=== PATIENT | male | born 1940 | race Caucasian/White ===

== ENCOUNTER 2024-09-03 12:03 | Emergency (ER) | payer OTHER ==
--- OUTSIDE RECORDS SUMMARY | 2024-09-03 12:09 | XMS REPORT | Continuity of Care Document ---
Author Name Unknown Address [address] [facility] [address] [place] [address] [facility] thconnect Address [address] [facility] [address] [place] [address] Care Team Providers Care Health Advocate Name Role Phone CECILIA GÓMEZ Primary Care Physician Unavailable JEN MCARTHUR Attending Clinician Unavailab PAULETTE Oshea Attending Clinician Unavailable Stephane Dahl DO Attending Clinician [phone] Paulette Rosado Attending Clinician [phone] Radiology Attending Clinician Unavailable RADIOLOGY Attending Clinician Unavailable Doctor Unassigned, Finley Attending Clinician U CHRIS Gee Attending Clinician Unavaila ble Ige-Odhelen_Lakisha_AH Attending Clinician Unavailable PAULETTE MERRITT Admitting Clinician Unavailable CECILIA GÓMEZ Admitting Clinician Un available Ige-Mee_Lakisha_AH Admitting Clinician Unavailable Payers Payer Name Policy Type Policy Number Effective Date Expirati on Date Source [employer] P [id number] MEDICARE PART A \T\ B [id number] 2007 00:00:00 2024 00:00:00 [facility] MEDICARE SUPPLEMENT [id number] 2008 00:00:00 2024 00:00:00 [employer] [place] CLASS[place] PREMIUM HMO [id number] 2019 00:00:00 2024 00:00:00 [employer] MEDICARE OUT OF NETWORK [id number] 2023 00:00:00 2024 00:00:00 [facility] [id number] 2014 00:00:00 2024 00:00:00 [employer] (MEDICARE REPLACEMENT/ADVAN TAGE - HMO) [id number] 00:00:00 Problems Condition Name Condition Details Condition Category Status Onset Date Resolution Date Last Treatment Date Treating Clinician Comments Source No known active problems No known active problems Disease Univers [facility] Allergies, Adverse Reactions, Alerts Allergy Name Allergy Type Status Severity Reaction(s) Onset Date Inactive Date Treating Clinician Comments Source NO KNOWN ALLERGIE S Drug Class Active Univers [facility] Social History Social Habit Start Date Stop Date Quantity Comments Source History of tobacco use Smokes tobacco daily [facility] Sexual [facility] Tobacco use and exposure 2017-08-09 00:00:00 2017-08-09 00:00:00 User of smokeless tobacco [facility] History of Social function 2017-08-09 00:00:00 2017-08-09 00:00:00 [facility] Sex Assigned At 1940 00:00:00 1940 00:00:00 [facility] Smoking Status Start Date Stop Date Source Smokes tobacco daily 2017-08-09 00:00:00 [facility] Medications Ordered Medication Name Filled Medication Name Start Date Stop Date Current Medication? Ordering Clinician Indication Dosage Frequency Signature (SIG) Comments Components Source tamsulosin 0.4 mg capsule 2023-08 00:00: 00 Yes 1mg Sagar Benavides tamsulosin 0.4 mg capsule 2023-08 00:00: 00 Yes 1mg Sagar Benavides diclofenac sodium 75 mg tablet,acosta yed release 2023-08 00:00: 00 Yes 2mg Sagar Benavides citalopram 20 mg tablet 2023-08 00:00: 00 Yes 1mg Sagar Benavides pravastatin 40 mg tablet 2023-08 00:00: 00 Yes 1mg Sagar Benavides ProAir RespiClick 90 mcg/actuati on breath activated 2023-08 00:00: 00 Yes 1mcg/ac tuation Sagar Benavides Advair Diskus 250 mcg-50 mcg/dose powder for inhalation 2023-08 0-10 00:00: 00 Yes 1mcg/do se Sagar Benavides albuterol sulfate 0.63 mg/3 mL solution for nebulizatio n 0 8-13 00:00: 00 Yes mg/3 mL Sagar Benavides Advair Diskus 250 mcg-50 mcg/dose powder for inhalation 0 8-13 00:00: 00 Yes 1mcg/do se Sagar Benavides ProAir RespiClick 90 mcg/actuati on breath activated 0 7- 00:00: 00 Yes 1mcg/ac tuation Sagar Benavides citalopram 20 mg tablet 7- 00:00: 00 Yes 1mg Sagar Benavides pravastatin 40 mg tablet 7- 00:00: 00 Yes 1mg Sagar Benavides diphenoxyla te-atropine 2.5 mg-0.025 mg tablet - 00:00: 00 Yes 1mg Sagar Benavides amoxicillin 875 mg-potassiu m clavulanate 125 mg tablet 6- 00:00: 00 Yes 1mg Sagar Benavides ondansetron 4 mg disintegrat ing tablet - 00:00: 00 Yes 1mg Sagar Benavides albuterol sulfate 0.63 mg/3 mL solution for nebulizatio n 6-19 00:00: 00 Yes mg/3 mL Sagar Benavides ProAir RespiClick 90 mcg/actuati on breath activated 0 6-17 00:00: 00 Yes 1mcg/ac tuation Sagar Benavides citalopram 20 mg tablet 0 6-17 00:00: 00 Yes 1mg Sagar Benavides ProAir RespiClick 90 mcg/actuati on breath activated 0 5-16 00:00: 00 Yes 1mcg/ac tuation Sagar Benavides Advair Diskus 250 mcg-50 mcg/dose powder for inhalation 0 5-14 00:00: 00 Yes 1mcg/do se Sagar Benavides WIXELA INHUB 250/50 INH 2024-0 4-17 00:00: 00 Yes Sagar Benavides Advair Diskus 250 mcg-50 mcg/dose powder for inhalation 14 00:00: 00 Yes 1mcg/do se Sagar Benavides citalopram 20 mg tablet 14 00:00: 00 Yes 1mg Sagar Benavides pravastatin 40 mg tablet 14 00:00: 00 Yes 1mg Sagar Benavides WIXELA INHUB 250/50 INH 11-02 00:00: 00 Yes Sagar Benavides Restasis MultiDose 0.05 % eye drops 10-31 00:00: 00 Yes 1% Sagar Benavides ProAir RespiClick 90 mcg/actuati on breath activated 10-31 00:00: 00 Yes 1mcg/ac tuation Sagar Benavides albuterol sulfate 0.63 mg/3 mL solution for nebulizatio n 10-31 00:00: 00 Yes 1mg/3 mL Sagar Benavides Advair Diskus 250 mcg-50 mcg/dose powder for inhalation 10-31 00:00: 00 Yes 1mcg/do se Sagar Benavides betamethaso ne dipropionat e 0.05 % topical ointment 10-31 00:00: 00 Yes 1% Sagar Benavides mometasone 0.1 % topical cream 10-31 00:00: 00 Yes 1% Sagar Benavides Vectical 3 mcg/gram topical ointment 10-31 00:00: 00 Yes 1mcg/gr am Sagar Benavides diclofenac sodium 75 mg tablet,acosta yed release 10-31 00:00: 00 Yes 2mg Sagar Benavides pravastatin 40 mg tablet 2 00:00: 00 Yes mg Sagar Benavides citalopram 20 mg tablet 10-14 00:00: 00 Yes 1mg Sagar Benavides diclofenac 75 mg EC tablet 10-10 09:43: 38 10-10 00:00 :00 No 75mg Take 75 mg by mouth 3 (three) times daily with meals. [facility] diclofenac 50 mg EC tablet 10-10 00:00: 00 Yes [id number] 50mg Take 1 tablet by mouth 3 (three) times daily with meals as needed for Pain. [facility] methylPREDN ISolone 4 mg tablets 10-10 00:00: 00 Yes [id number] Take by mouth SEE-INSTRU CTIONS. follow package directions [facility] baclofen 10 mg tablet 10-10 00:00: 00 Yes [id number] 10mg Take 1 tablet by mouth at bedtime. [facility] DICLOFENAC 50MG DR 10-10 00:00: 00 Yes Sagar Benavides METHYLPRED 4MG DPAK 10-10 00:00: 00 Yes Sagar Benavides BACLOFEN 10MG 10-10 00:00: 00 Yes Sagar Benavides RESTASIS 0.05% OP EMU 2022-08 0 00:00: 00 Yes Sagar Benavides DESONIDE 0.05% CRE 2022-08 0-06 00:00: 00 Yes Sagar Benavides INHALE 1 PUFF TWICE DAILY. 05-17 00:00: 00 Yes [id number] Sagar Benavides TAKE 1 TABLET DAILY. 05-04 00:00: 00 01-03 00:00 :00 No 40 Sagar Benavides TAKE 1 TABLET DAILY. 05-02 00:00: 00 Yes 20 Sagar Benavides TAKE 1 TABLET DAILY. 05-02 00:00: 00 Yes 40 Sagar Benavides ADVAIR DISKU 100/50 INH 04-27 00:00: 00 Yes Sagar Benavides DOXYCYCL HYC 50MG 03-09 00:00: 00 Yes Sagar Benavides USE 1 VIAL IN NEBULIZER EVERY 6 HOURS NEEDED. 02-03 00:00: 00 Yes [id number] Sagar Benavides CITALOPRAM 20MG 02-03 00:00: 00 01-03 00:00 :00 No Sagar Benavides PRAVASTATIN 40MG 3- 00:00: 00 Yes [id number] Sagar Benavides CITALOPRAM 20MG 2023-0 3-13 00:00: 00 01-03 00:00 :00 No Sagar Benavides ADVAIR DISKU 100/50 INH 2022-0 1-25 00:00: 00 Yes Sagar Benavides INHALE 1 PUFF TWICE DAILY. 2021-08 2-22 00:00: 00 01-03 00:00 :00 No [id number] Sagar Benavides TAKE 1 TABLET DAILY. 2021-08 2- 00:00: 00 01-03 00:00 :00 No 20 Sagar Benavides PRAVASTATIN 40MG 2021-08 2-17 00:00: 00 Yes Sagar Benavides ADVAIR DISKUS 250/50 INH 2021-0 9-29 00:00: 00 No ADVAIR DISKUS 250/50 INH 2021-0 9-29 00:00: 00 Yes Sagar Benavides PRAVASTATIN SODIUM 40MG 0 9- 00:00: 00 Yes [id number] Sagar Benavides ADVAIR DISKUS 250/50 INH 2021-0 9- 00:00: 00 Yes Sagar Benavides Advair Diskus 250 mcg-50 mcg/dose powder for inhalation 0 03-16 00:00: 00 No 1mcg/do se Advair Diskus 250 mcg-50 mcg/dose powder for inhalation 0 03-16 00:00: 00 Yes 1mcg/do se Sagar Benavides RESTASIS 0.05% OP EMU 0 - 00:00: 00 Yes 50 Sagar Benavides DOXYCYCLINE HYCLATE 50MG 0 03-04 00:00: 00 Yes [id number] Sagar Benavides citalopram 20 mg tablet 2021-0 6- 00:00: 00 No 1mg pravastatin 40 mg tablet 0 6- 00:00: 00 No 1mg citalopram 20 mg tablet 2021-0 6- 00:00: 00 Yes 1mg Sagar Benavides pravastatin 40 mg tablet 0 6- 00:00: 00 Yes 1mg Sagar Benavides Advair Diskus 250 mcg-50 mcg/dose powder for inhalation 0 - 00:00: 00 No 1mcg/do se citalopram 20 mg tablet 0 -26 00:00: 00 No 1mg Advair Diskus 250 mcg-50 mcg/dose powder for inhalation 2021-0 5- 00:00: 00 Yes 1mcg/do se Sagar Benavides citalopram 20 mg tablet 2021-0 5-26 00:00: 00 Yes 1mg Sagar Benavides PRAVASTATIN SODIUM 40MG 2021-0 5-25 00:00: 00 Yes [id number] Sagar Benavides citalopram 20 mg tablet 2021-0 4-26 00:00: 00 No 1mg citalopram 20 mg tablet 2021-0 4-26 00:00: 00 Yes 1mg Sagar Benavides Dose Unknown 2021-0 3-16 00:00: 00 No Dose Unknown 2021-0 3-16 00:00: 00 No Dose Unknown 2021-0 3-16 00:00: 00 Yes Sagar Benavides Dose Unknown 2021-0 3-16 00:00: 00 Yes Sagar Benavides Dose Unknown 2021-0 3-04 00:00: 00 No Dose Unknown 2021-0 3-04 00:00: 00 No Dose Unknown 2021-0 3-04 00:00: 00 Yes Sagar Benavides Dose Unknown 2021-0 3-04 00:00: 00 Yes Sagar Benavides Ventolin HFA 90 mcg/actuati on aerosol inhaler 2021-0 3-03 00:00: 00 No 2mcg/ac tuation Advair Diskus 250 mcg-50 mcg/dose powder for inhalation 2021-0 3-03 00:00: 00 No 1mcg/do se Dose Unknown 2021-0 3-03 00:00: 00 No pravastatin 40 mg tablet 2021-0 3-03 00:00: 00 No 1mg albuterol sulfate 2.5 mg/3 mL (0.083 %) solution for nebulizatio n 2021-0 3-03 00:00: 00 No 1/3 mL (0.083 %) Ventolin HFA 90 mcg/actuati on aerosol inhaler 2021-0 3-03 00:00: 00 Yes 2mcg/ac tuation Sagar Benavides Advair Diskus 250 mcg-50 mcg/dose powder for inhalation 2021-0 3-03 00:00: 00 Yes 1mcg/do se Sagar Benavides Dose Unknown 3- 00:00: 00 Yes Sagar Benavides pravastatin 40 mg tablet 3- 00:00: 00 Yes 1mg Sagar Benavides albuterol sulfate 2.5 mg/3 mL (0.083 %) solution for nebulizatio n 3- 00:00: 00 Yes 1/3 mL (0.083 %) Sagar Benavides Dose Unknown 2-22 00:00: 00 No Dose Unknown 0 2-22 00:00: 00 Yes Sagar Benavides Dose Unknown 2- 00:00: 00 No Dose Unknown 0 2- 00:00: 00 Yes Sagar Benavides Dose Unknown 2020-08- 00:00: 00 No Dose Unknown 2020-08 00:00: 00 Yes Sagar Benavides Dose Unknown 2020-08 00:00: 00 No Dose Unknown 2020-08 00:00: 00 No diclofenac sodium 75 mg tablet,acosta yed release 2020-08 00:00: 00 No 1mg Dose Unknown 2020-08 00:00: 00 No Dose Unknown 2020-08 00:00: 00 Yes Sagar Benavides Dose Unknown 2020-08 00:00: 00 Yes Sagar Benavides diclofenac sodium 75 mg tablet,acosta yed release 2020-08 00:00: 00 Yes 1mg Sagar Benavides Dose Unknown 2020-08 00:00: 00 Yes Sgaar Benavides Advair Diskus 250 mcg-50 mcg/dose powder for inhalation 02-13 00:00: 00 No 1mcg/do se Advair Diskus 250 mcg-50 mcg/dose powder for inhalation 02-13 00:00: 00 Yes 1mcg/do se Sagar Benavides betamethaso ne dipropionat e 0.05 % topical cream 12-30 00:00: 00 No 1% betamethaso ne dipropionat e 0.05 % topical ointment 12-30 00:00: 00 No 1% calcitriol 3 mcg/gram topical ointment 12-30 00:00: 00 No 1mcg/gr am mometasone 0.1 % topical solution 12-30 00:00: 00 No 1% betamethaso ne dipropionat e 0.05 % topical cream 12-30 00:00: 00 Yes 1% Sagar F Kennedy betamethaso ne dipropionat e 0.05 % topical ointment 12-30 00:00: 00 Yes 1% Sagar F Kennedy calcitriol 3 mcg/gram topical ointment 12-30 00:00: 00 Yes 1mcg/gr am Sagar F Kennedy mometasone 0.1 % topical solution 12-30 00:00: 00 Yes 1% Sagar F Kennedy Proair Digihaler 90 mcg/actuati on aerosol powder breath act, sensor 12-26 00:00: 00 No 2mcg/ac tuation Ventolin HFA 90 mcg/actuati on aerosol inhaler 12-26 00:00: 00 No 2mcg/ac tuation Advair Diskus 250 mcg-50 mcg/dose powder for inhalation 12-26 00:00: 00 No 1mcg/do se citalopram 20 mg tablet 12-26 00:00: 00 No 1mg diclofenac sodium 75 mg tablet,acosta yed release 12-26 00:00: 00 No 1mg pravastatin 40 mg tablet 12-26 00:00: 00 No 1mg Daliresp 250 mcg tablet 12-26 00:00: 00 No 1mcg mometasone 0.1 % topical solution 12-26 00:00: 00 No 1% Proair Digihaler 90 mcg/actuati on aerosol powder breath act, sensor 12-26 00:00: 00 Yes 2mcg/ac tuation Sagar Maldonado Kennedy Ventolin HFA 90 mcg/actuati on aerosol inhaler 12-26 00:00: 00 Yes 2mcg/ac tuation Sagar F Kennedy Advair Diskus 250 mcg-50 mcg/dose powder for inhalation 12-26 00:00: 00 Yes 1mcg/do se Sagar Benavides citalopram 20 mg tablet 12-26 00:00: 00 Yes 1mg Sagar Benavides diclofenac sodium 75 mg tablet,acosta yed release 12-26 00:00: 00 Yes 1mg Sagar Benavides pravastatin 40 mg tablet 12-26 00:00: 00 Yes 1mg Sagar Benavides Daliresp 250 mcg tablet 12-26 00:00: 00 Yes 1mcg Sagar Benavides mometasone 0.1 % topical solution 12-26 00:00: 00 Yes 1% Sagar Benavides Advair Diskus 250 mcg-50 mcg/dose powder for inhalation 12-18 00:00: 00 No 1mcg/do se Advair Diskus 250 mcg-50 mcg/dose powder for inhalation 12-18 00:00: 00 Yes 1mcg/do se Sagar Benavides citalopram 20 mg tablet 11-25 00:00: 00 No 1mg diclofenac sodium 75 mg tablet,acosta yed release 11-25 00:00: 00 No 1mg pravastatin 40 mg tablet 11-25 00:00: 00 No 1mg Daliresp 250 mcg tablet 11-25 00:00: 00 No 1mcg citalopram 20 mg tablet 11-25 00:00: 00 Yes 1mg Sagar Benavides diclofenac sodium 75 mg tablet,acosta yed release 11-25 00:00: 00 Yes 1mg Sagar Benavides pravastatin 40 mg tablet 11-25 00:00: 00 Yes 1mg Sagar Benavides Daliresp 250 mcg tablet 11-25 00:00: 00 Yes 1mcg Sagar Benavides Ventolin HFA 90 mcg/actuati on aerosol inhaler 09-01 00:00: 00 No 2mcg/ac tuation citalopram 20 mg tablet - 00:00: 00 No 1mg diclofenac sodium 75 mg tablet,acosta yed release - 00:00: 00 No 1mg pravastatin 40 mg tablet 09-01 00:00: 00 No 1mg Daliresp 250 mcg tablet 09-01 00:00: 00 No 1mcg Ventolin HFA 90 mcg/actuati on aerosol inhaler 09-01 00:00: 00 Yes 2mcg/ac tuation Sagar Benavides citalopram 20 mg tablet 09-01 00:00: 00 Yes 1mg Sagar Benavides diclofenac sodium 75 mg tablet,acosta yed release 09-01 00:00: 00 Yes 1mg Sagar Benavides pravastatin 40 mg tablet 09-01 00:00: 00 Yes 1mg Sagar Benavides Daliresp 250 mcg tablet 09-01 00:00: 00 Yes 1mcg Sagar Benavides citalopram 20 mg tablet 08-29 00:00: 00 No 1mg diclofenac sodium 75 mg tablet,acosta yed release 08-29 00:00: 00 No 1mg pravastatin 40 mg tablet 08-29 00:00: 00 No 1mg citalopram 20 mg tablet 08-29 00:00: 00 Yes 1mg Sagar Benavides diclofenac sodium 75 mg tablet,acosta yed release 08-29 00:00: 00 Yes 1mg Sagar Benavides pravastatin 40 mg tablet 08-29 00:00: 00 Yes 1mg Sagar Benavides Lomotil 2.5 mg-0.025 mg tablet 2019-08 2-15 00:00: 00 No 1mg Lomotil 2.5 mg-0.025 mg tablet 2019-08 2-15 00:00: 00 Yes 1mg Sagar Benavides Ventolin HFA 90 mcg/actuati on aerosol inhaler 2019-08- 00:00: 00 No 2mcg/ac tuation Ventolin HFA 90 mcg/actuati on aerosol inhaler 2019-08 00:00: 00 Yes 2mcg/ac tuation Sagar Benavides Proair Digihaler 90 mcg/actuati on aerosol powder breath act, sensor 2019-08- 00:00: 00 No 2mcg/ac tuation Advair Diskus 250 mcg-50 mcg/dose powder for inhalation 2019-08 00:00: 00 No 1mcg/do se Proair Digihaler 90 mcg/actuati on aerosol powder breath act, sensor 2019-08 00:00: 00 Yes 2mcg/ac tuation Sagar Benavides Advair Diskus 250 mcg-50 mcg/dose powder for inhalation 2019-08 00:00: 00 Yes 1mcg/do se Sagar Benavides citalopram 20 mg tablet 2019-08 0 00:00: 00 No 1mg diclofenac sodium 75 mg tablet,acosta yed release 2019-08 0 00:00: 00 No 1mg pravastatin 40 mg tablet 2019-08 0 00:00: 00 No 1mg citalopram 20 mg tablet 2019-08 00:00: 00 Yes 1mg Sagar Benavides diclofenac sodium 75 mg tablet,acosta yed release 2019-08 0 00:00: 00 Yes 1mg Sagar Benavides pravastatin 40 mg tablet 2019-08 00:00: 00 Yes 1mg Sagar Benavides diclofenac sodium 75 mg tablet,acosta yed release 02-11 00:00: 00 No 1mg diclofenac sodium 75 mg tablet,acosta yed release 02-11 00:00: 00 Yes 1mg Sagar Benavides citalopram 20 mg tablet 01-16 00:00: 00 No 1mg pravastatin 40 mg tablet 01-16 00:00: 00 No 1mg Daliresp 250 mcg tablet 01-16 00:00: 00 No 1mcg citalopram 20 mg tablet 01-16 00:00: 00 Yes 1mg Sagar Benavides pravastatin 40 mg tablet 01-16 00:00: 00 Yes 1mg Sagra Benavides Daliresp 250 mcg tablet 01-16 00:00: 00 Yes 1mcg Sagar Benavides Daliresp 250 mcg tablet 09-20 00:00: 00 No 1mcg Daliresp 250 mcg tablet 09-20 00:00: 00 Yes 1mcg Sagar Benavides citalopram 20 mg tablet 09-18 00:00: 00 No 1mg diclofenac sodium 75 mg tablet,acosta yed release 09-18 00:00: 00 No 1mg pravastatin 40 mg tablet 09-18 00:00: 00 No 1mg mometasone 0.1 % topical solution 09-18 00:00: 00 No 1% citalopram 20 mg tablet 09-18 00:00: 00 Yes 1mg Sagar Benavides diclofenac sodium 75 mg tablet,acosta yed release 09-18 00:00: 00 Yes 1mg Sagar Benavides pravastatin 40 mg tablet 09-18 00:00: 00 Yes 1mg Sagar Benavides mometasone 0.1 % topical solution 09-18 00:00: 00 Yes 1% Sagar Benavides triamcinolo ne acetonide 0.1 % topical cream 09-14 00:00: 00 No 1% Vectical 3 mcg/gram topical ointment 09-14 00:00: 00 No 1mcg/gr am citalopram 20 mg tablet 09-14 00:00: 00 No 1mg diclofenac sodium 75 mg tablet,acosta yed release 09-14 00:00: 00 No 1mg pravastatin 40 mg tablet 09-14 00:00: 00 No 1mg albuterol sulfate 2.5 mg/3 mL (0.083 %) solution for nebulizatio n 09-14 00:00: 00 No 1/3 mL (0.083 %) Dose Unknown 09-14 00:00: 00 No Proair Digihaler 90 mcg/actuati on aerosol powder breath act, sensor 09-14 00:00: 00 No 2mcg/ac tuation nystatin 100,000 unit/gram topical powder 09-14 00:00: 00 No 1unit/g joey Advair Diskus 250 mcg-50 mcg/dose powder for inhalation 09-14 00:00: 00 No 1mcg/do se betamethaso ne dipropionat e 0.05 % topical cream 09-14 00:00: 00 No 1% calcipotrie ne 0.005 % topical ointment 09-14 00:00: 00 No 1% pravastatin 40 mg tablet 09-14 00:00: 00 Yes 1mg Sagar Benavides Proair Digihaler 90 mcg/actuati on aerosol powder breath act, sensor 09-14 00:00: 00 Yes 2mcg/ac tuation Sagar Benavides nystatin 100,000 unit/gram topical powder 09-14 00:00: 00 Yes 1unit/g joey Sagar Benavides Advair Diskus 250 mcg-50 mcg/dose powder for inhalation 09-14 00:00: 00 Yes 1mcg/do se Sagar Benavides betamethaso ne dipropionat e 0.05 % topical cream 09-14 00:00: 00 Yes 1% Sagar Benavides calcipotrie ne 0.005 % topical ointment 09-14 00:00: 00 Yes 1% Sagar Benavides triamcinolo ne acetonide 0.1 % topical cream 09-14 00:00: 00 Yes 1% Sagar Benavides Vectical 3 mcg/gram topical ointment 09-14 00:00: 00 Yes 1(14)-1 00 mg (7) Sagar Benavides citalopram 20 mg tablet 09-14 00:00: 00 Yes 1mg Sagar Benavides diclofenac sodium 75 mg tablet,acosta yed release 09-14 00:00: 00 Yes 1mg Sagar Benavides albuterol sulfate 2.5 mg/3 mL (0.083 %) solution for nebulizatio n 09-14 00:00: 00 Yes 1/3 mL (0.083 %) Sagar Benavides Restasis MultiDose 0.05 % eye drops 09-14 00:00: 00 Yes 1% Sagar Benavides varenicline (CHANTIX STARTING MONTH BOX) 0.5 mg (11)- 1 mg (42) tablet 2016-08 18:46: 52 Yes Take by mouth 2 (two) times daily. Take one 0.5mg tab by mouth once daily for 3 days, then one 0.5mg tab twice daily for 4 days, then one 1mg tab twice daily. [facility] citalopram 20 mg tablet 2016-08 18:46: 52 Yes 20mg Take 20 mg by mouth daily. [facility] diclofenac 75 mg EC tablet 2016-08 18:46: 52 Yes 75mg Take 75 mg by mouth 3 (three) times daily with meals. [facility] albuterol 90 mcg/actuati on inhaler 2016-08 18:46: 52 Yes 2{puff} Inhale 2 Puffs every 6 (six) hours as needed for Wheezing or Shortness of Breath. [facility] cycloSPORIN E (RESTASIS) 0.05 % drops 2016-08 18:46: 52 Yes 1[drp] Place 1 Drop in left eye every 12 (twelve) hours. [facility] pravastatin 40 mg tablet 2016-08 18:46: 52 Yes 40mg Take 40 mg by mouth at bedtime. [facility] fluticasone -salmeterol (ADVAIR DISKUS) 250-50 mcg/dose inhalation disk 2016-08 18:46: 52 Yes 1{puff} Inhale 1 Puff every 12 (twelve) hours. [facility] aug betamethaso ne dipropionat e 0.05 % cream 2016-08 18:46: 52 Yes Apply to area(s) 2 (two) times daily. [facility] calcipotrie ne 0.005 % ointment 2016-08 18:46: 52 Yes Apply to area(s) 2 (two) times daily. [facility] pravastatin 40 mg tablet 2016-08 12:46: 52 Yes 40mg Take 40 mg by mouth at bedtime. [facility] fluticasone -salmeterol (ADVAIR DISKUS) 250-50 mcg/dose inhalation disk 2016-08 12:46: 52 Yes 1{puff} Inhale 1 Puff every 12 (twelve) hours. [facility] aug betamethaso ne dipropionat e 0.05 % cream 2016-08 12:46: 52 Yes Apply to area(s) 2 (two) times daily. [facility] calcipotrie ne 0.005 % ointment 2016-08 12:46: 52 Yes Apply to area(s) 2 (two) times daily. [facility] varenicline (CHANTIX STARTING MONTH BOX) 0.5 mg (11)- 1 mg (42) tablet 2016-08 12:46: 52 Yes Take by mouth 2 (two) times daily. Take one 0.5mg tab by mouth once daily for 3 days, then one 0.5mg tab twice daily for 4 days, then one 1mg tab twice daily. [facility] citalopram 20 mg tablet 2016-08 12:46: 52 Yes 20mg Take 20 mg by mouth daily. [facility] diclofenac 75 mg EC tablet 2016-08 12:46: 52 Yes 75mg Take 75 mg by mouth 3 (three) times daily with meals. [facility] albuterol 90 mcg/actuati on inhaler 2016-08 12:46: 52 Yes 2{puff} Inhale 2 Puffs every 6 (six) hours as needed for Wheezing or Shortness of Breath. [facility] cycloSPORIN E (RESTASIS) 0.05 % drops 2016-08 12:46: 52 Yes 1[drp] Place 1 Drop in left eye every 12 (twelve) hours. [facility] Immunizations Ordered Immunization Name Filled Immunization Name Date Status Comments Source influenza, seasonal vaccine, quadrivalent, adjuvanted, .5mL dose, preservative-free influenza, seasonal vaccine, quadrivalent, adjuvanted, .5mL dose, preservative-free 2024-07-04 00:00:00 Gabriel Benavides SHINGRIX VACCINE SHINGRIX VACCINE 2023-05-26 00:00:00 Gabriel Benavides influenza, seasonal vaccine, quadrivalent, adjuvanted, .5mL dose, preservative-free influenza, seasonal vaccine, quadrivalent, adjuvanted, .5mL dose, preservative-free 2023-05-17 00:00:00 Gabriel Benavides SHINGRIX VACCINE SHINGRIX VACCINE 2022-11-01 00:00:00 Gabriel Benavides influenza, seasonal vaccine, quadrivalent, adjuvanted, .5mL dose, preservative-free 2022-05-10 00:00:00 Completed influenza, seasonal vaccine, quadrivalent, adjuvanted, .5mL dose, preservative-free 2022-05-10 00:00:00 Completed influenza, seasonal vaccine, quadrivalent, adjuvanted, .5mL dose, preservative-free influenza, seasonal vaccine, quadrivalent, adjuvanted, .5mL dose, preservative-free 2022-05-10 00:00:00 Completed Sagar Benavides Moderna COVID-19 Vaccine 2022-01-08 00:00:00 Completed Moderna COVID-19 Vaccine 2022-01-08 00:00:00 Completed Moderna COVID-19 Vaccine Moderna COVID-19 Vaccine 2022-01-08 00:00:00 Gabriel Benavides influenza, high-dose, quadrivalent 2021-06-17 00:00:00 Completed Moderna COVID-19 Vaccine 2021-06-17 00:00:00 Completed influenza, high-dose, quadrivalent 2021-06-17 00:00:00 Completed Moderna COVID-19 Vaccine 2021-06-17 00:00:00 Completed influenza, high-dose, quadrivalent influenza, high-dose, quadrivalent 2021-06-17 00:00:00 Completed Sagar Benavides Moderna COVID-19 Vaccine Moderna COVID-19 Vaccine 2021-06-17 00:00:00 Completed Sagar Benavides Moderna COVID-19 Vaccine 2020-10-16 00:00:00 Completed Moderna COVID-19 Vaccine 2020-10-16 00:00:00 Completed Moderna COVID-19 Vaccine Moderna COVID-19 Vaccine 2020-10-16 00:00:00 Completed Sagar Benavides Moderna COVID-19 Vaccine 2020-09-19 00:00:00 Completed Moderna COVID-19 Vaccine 2020-09-19 00:00:00 Completed Moderna COVID-19 Vaccine Moderna COVID-19 Vaccine 2020-09-19 00:00:00 aGbriel Benavides influenza, high-dose, quadrivalent 2020-05-19 00:00:00 Completed influenza, high-dose, quadrivalent 2020-05-19 00:00:00 Completed influenza, high-dose, quadrivalent influenza, high-dose, quadrivalent 2020-05-19 00:00:00 Completed Sagarjuan Benavides Vital Signs Vital Name Observation Time Observation Value Marta moralez Systolic blood pressure 2023-10-10 16:00:00 103 mm[Hg] [place] [facility] Diastolic blood pressure 2023-10-10 16:00:00 63 mm[Hg] [place] [facility] Heart rate 2023-10-10 16:00:00 67 /min [facility] Respiratory rate 2023-10-10 16:00:00 18 /min [facility] Oxygen saturation in Arterial blood by Pulse oximetry 2023-10-10 16:00:00 93 /min [facility] Body temperature 2023-10-10 14:27:00 36.89 Brigida [facility] Body height 2023-10-10 14:27:00 175.3 cm [facility] Body weight 2023-10-10 14:27:00 127.007 kg [facility] BMI 2023-10-10 14:27:00 41.35 kg/m2 [facility] BP Systolic 2024-07-04 09:40:00 95 mm[Hg] Step hen F Kennedy BP Diastolic 2024-07-04 09:40:00 62 mm[Hg] Wilfrid phen F Kennedy Weight Measured 2024-07-04 09:40:00 261.80 pounds Sagar F Kennedy Height Measured 2024-07-04 09:40:00 66.00 inches Sagar F Kennedy Body Temperature 2024-07-04 09:40:00 97.40 degrees Sagar F Kennedy Heart Rate 2024-07-04 09:40:00 93.00 /min Jeni en F Kennedy Respiratory Rate 2024-07-04 09:40:00 Sagar F Kennedy BP Systolic 2024-04-03 15:14:00 139 mm[Hg] Step hen F Kennedy BP Diastolic 2024-04-03 15:14:00 75 mm[Hg] Wilfrid phen F Kennedy Weight Measured 2024-04-03 15:14:00 268.20 pounds Sagar F Kennedy Height Measured 2024-04-03 15:14:00 66.00 inches Sagar F Eknnedy Body Temperature 2024-04-03 15:14:00 97.80 degrees Sagar F Kennedy Heart Rate 2024-04-03 15:14:00 79.00 /min Jeni en F Kennedy Respiratory Rate 2024-04-03 15:14:00 29.00 /min Sagar F Kennedy BP Systolic 2024-02-16 11:06:00 100 mm[Hg] Step hen F Kennedy BP Diastolic 2024-02-16 11:06:00 52 mm[Hg] Wilfrid phen F Kennedy Weight Measured 2024-02-16 11:06:00 Sagar F Kennedy Height Measured 2024-02-16 11:06:00 66.00 inches Sagar F Kennedy Body Temperature 2024-02-16 11:06:00 97.60 degrees Sagar F Kennedy Heart Rate 2024-02-16 11:06:00 80.00 /min Jeni en F Kennedy Respiratory Rate 2024-02-16 11:06:00 Sagar F Kennedy BP Diastolic 2024-01-05 14:45:00 69 mm[Hg] Wilfrid phen F Kennedy Weight Measured 2024-01-05 14:45:00 276.20 pounds Sagar F Kennedy Height Measured 2024-01-05 14:45:00 66.00 inches Sagar F Kennedy Body Temperature 2024-01-05 14:45:00 97.40 degrees Sagar F Kennedy Heart Rate 2024-01-05 14:45:00 79.00 /min Jeni en F Kennedy Respiratory Rate 2024-01-05 14:45:00 Sagar F Kennedy BP Systolic 2024-01-05 14:45:00 113 mm[Hg] Step hen F Kennedy BP Systolic 2023-11-01 11:15:00 142 mm[Hg] Step hen F Kennedy BP Diastolic 2023-11-01 11:15:00 88 mm[Hg] Wilfrid phen F Kennedy Weight Measured 2023-11-01 11:15:00 273.10 pounds Sagar F Kennedy Height Measured 2023-11-01 11:15:00 66.00 inches Sagar F Kennedy Body Temperature 2023-11-01 11:15:00 97.70 degrees Sagar F Kennedy Heart Rate 2023-11-01 11:15:00 97.00 /min Jeni en F Kennedy Respiratory Rate 2023-11-01 11:15:00 Sagar F Kennedy BP Systolic 2023-06-27 15:20:00 123 mm[Hg] Step hen F Kennedy BP Diastolic 2023-06-27 15:20:00 71 mm[Hg] Wilfrid phen F Kennedy Weight Measured 2023-06-27 15:20:00 281.60 pounds Sagar F Kennedy Height Measured 2023-06-27 15:20:00 66.00 inches Sagar F Kennedy Body Temperature 2023-06-27 15:20:00 98.00 degrees Sagar F Kennedy Heart Rate 2023-06-27 15:20:00 84.00 /min Jeni en F Kennedy Respiratory Rate 2023-06-27 15:20:00 Sagar F Kennedy BP Systolic 2023-05-26 09:29:00 110 mm[Hg] Step hen F Kennedy BP Diastolic 2023-05-26 09:29:00 76 mm[Hg] Wilfrid phen F Kennedy Weight Measured 2023-05-26 09:29:00 282.60 pounds Sagar F Kennedy Height Measured 2023-05-26 09:29:00 66.00 inches Sagar F Kennedy Body Temperature 2023-05-26 09:29:00 98.00 degrees Sagar F Kennedy Heart Rate 2023-05-26 09:29:00 82.00 /min Jeni en F Kennedy Respiratory Rate 2023-05-26 09:29:00 Sagar F Kennedy BP Systolic 2023-05-17 11:43:00 107 mm[Hg] Step hen F Kennedy BP Diastolic 2023-05-17 11:43:00 64 mm[Hg] Wilfrid phen F Kennedy Weight Measured 2023-05-17 11:43:00 281.00 pounds Sagar F Kennedy Height Measured 2023-05-17 11:43:00 66.00 inches Sagar F Kennedy Body Temperature 2023-05-17 11:43:00 98.30 degrees Sagar F Kennedy Heart Rate 2023-05-17 11:43:00 79.00 /min Jeni en F Kennedy Respiratory Rate 2023-05-17 11:43:00 Sagar F Kennedy BP Systolic 2022-11-01 11:18:00 136 mm[Hg] Step hen F Kennedy BP Diastolic 2022-11-01 11:18:00 84 mm[Hg] Wilfrid phen F Kennedy Weight Measured 2022-11-01 11:18:00 141.10 pounds Sagar F Kennedy Height Measured 2022-11-01 11:18:00 Sagar F Kennedy Body Temperature 2022-11-01 11:18:00 97.90 degrees Sagar F Kennedy Heart Rate 2022-11-01 11:18:00 81.00 /min Jeni en F Kennedy Respiratory Rate 2022-11-01 11:18:00 Sagar F Kennedy BP Systolic 2022-09-01 08:49:00 115 mm[Hg] Step hen F Kennedy BP Diastolic 2022-09-01 08:49:00 71 mm[Hg] Wilfrid phen F Kennedy Weight Measured 2022-09-01 08:49:00 286.60 pounds Sagar F Kennedy Height Measured 2022-09-01 08:49:00 66.00 inches Sagar F Kennedy Body Temperature 2022-09-01 08:49:00 98.10 degrees Sagar F Kennedy Heart Rate 2022-09-01 08:49:00 86.00 /min Jeni en F Kennedy Respiratory Rate 2022-09-01 08:49:00 Sagar F Kennedy BP Systolic 2022-05-10 16:18:00 117 mm[Hg] Step hen F Kennedy BP Diastolic 2022-05-10 16:18:00 75 mm[Hg] Wilfrid phen F Kennedy Weight Measured 2022-05-10 16:18:00 284.20 pounds Sagar F Kennedy Height Measured 2022-05-10 16:18:00 66.00 inches Sagar F Kennedy Body Temperature 2022-05-10 16:18:00 98.10 degrees Sagar F Kennedy Heart Rate 2022-05-10 16:18:00 92.00 /min Jeni en F Kennedy Respiratory Rate 2022-05-10 16:18:00 Sagar F Kennedy BP Systolic 2021-03-31 10:39:00 136 mm[Hg] Step hen F Kennedy BP Diastolic 2021-03-31 10:39:00 82 mm[Hg] Wilfrid phen F Kennedy Weight Measured 2021-03-31 10:39:00 269.60 pounds Sagar F Kennedy Height Measured 2021-03-31 10:39:00 66.00 inches Sagar F Kennedy Body Temperature 2021-03-31 10:39:00 97.90 degrees Sagar F Kennedy Heart Rate 2021-03-31 10:39:00 90.00 /min Jeni en F Kennedy Respiratory Rate 2021-03-31 10:39:00 Sagar F Kennedy BP Systolic 2020-12-30 10:49:00 149 mm[Hg] Step hen F Kennedy BP Diastolic 2020-12-30 10:49:00 91 mm[Hg] Wilfrid phen F Kennedy Weight Measured 2020-12-30 10:49:00 277.40 pounds Sagar F Kennedy Height Measured 2020-12-30 10:49:00 66.00 inches Sagar F Kennedy Body Temperature 2020-12-30 10:49:00 97.20 degrees Sagar F Kennedy Heart Rate 2020-12-30 10:49:00 92.00 /min Jeni en F Kennedy Respiratory Rate 2020-12-30 10:49:00 Sagarjuan Benavides BP Systolic 2020-05-29 11:26:00 BP Diastolic 2020-05-29 11:26:00 Weight Measured 2020-05-29 11:26:00 277.80 pounds Height Measured 2020-05-29 11:26:00 66.00 inches Body Temperature 2020-05-29 11:26:00 Heart Rate 2020-05-29 11:26:00 Respiratory Rate 2020-05-29 11:26:00 BP Systolic 2020-05-19 08:07:00 127 mm[Hg] BP Diastolic 2020-05-19 08:07:00 77 mm[Hg] Weight Measured 2020-05-19 08:07:00 277.80 pounds Height Measured 2020-05-19 08:07:00 66.00 inches Body Temperature 2020-05-19 08:07:00 97.10 degrees Heart Rate 2020-05-19 08:07:00 76.00 /min Respiratory Rate 2020-05-19 08:07:00 18.00 /min BP Systolic 2020-01-17 08:19:00 122 mm[Hg] BP Diastolic 2020-01-17 08:19:00 77 mm[Hg] Weight Measured 2020-01-17 08:19:00 276.00 pounds Height Measured 2020-01-17 08:19:00 66.00 inches Body Temperature 2020-01-17 08:19:00 97.80 degrees Heart Rate 2020-01-17 08:19:00 83.00 /min Respiratory Rate 2020-01-17 08:19:00 BP Systolic 2019-09-18 08:54:00 117 mm[Hg] BP Diastolic 2019-09-18 08:54:00 73 mm[Hg] Weight Measured 2019-09-18 08:54:00 280.00 pounds Height Measured 2019-09-18 08:54:00 66.00 inches Body Temperature 2019-09-18 08:54:00 97.80 degrees Heart Rate 2019-09-18 08:54:00 82.00 /min Respiratory Rate 2019-09-18 08:54:00 18.00 /min Procedures Procedure Date / Time Performed Performing Clinician Source XR PELVIS <3 VW 2023-10-10 15:00:45 Paulette Merritt [facility] CONSENT/REFUSAL FOR DIAGNOSIS AND TREATMENT 2023-10-10 14:42:16 Doctor Unassigned, [place] [facility] XR CHEST 2 VW 2022-09-16 17:17:26 Requisition, Paper [facility] ASSIGNMENT OF BENEFITS 2022-09-16 16:21:36 Docart r Unassigned, [place] [facility] NOTICE OF BILLING PRACTICES FOR MEDICARE PATIENTS 2020-06-12 20:10:22 Doctor Unassigned, Finley [facility] PATIENT FINANCIAL POLICY 2020-06-12 20:10:00 Doctor Unassigned, Finley [facility] NO SHOW OR MISSED APPOINTMENT POLICY ACKNOWLEDGEMENT 2020-06-12 20:09:36 Doctor Unassigned, [place] [facility] NOTICE OF PRIVACY PRACTICES 2020-06-12 20:09:14 Doctor Unassigned, [place] [facility] CONSENT/REFUSAL FOR DIAGNOSIS AND TREATMENT 2020-06-12 20:08:55 Doctor Unassigned, [place] [facility] ASSIGNMENT OF BENEFITS 2020-06-12 20:08:26 Docto r Unassigned, Finley [facility] Plan of Care Planned Activity Planned Date Details Comments Source Goal Plan of Care Note [code = 43359-0] Goal Plan of Care Note [code = 52645-5] Goal Plan of Care Note [code = 28385-6] Goal Plan of Care Note [code = 20219-9] Goal Plan of Care Note [code = 01108-8] Goal Plan of Care Note [code = 78067-7] Goal Plan of Care Note [code = 60368-4] Goal Plan of Care Note [code = 40580-4] Goal Plan of Care Note [code = 70819-2] Goal Plan of Care Note [code = 45370-2] Goal Plan of Care Note [code = 27494-9] Goal Plan of Care Note [code = 96292-9] Goal Plan of Care Note [code = 75218-9] Goal Plan of Care Note [code = 99146-7] Goal Plan of Care Note [code = 73294-9] Goal Plan of Care Note [code = 54678-1] Goal Plan of Care Note [code = 62484-2] Goal Plan of Care Note [code = 36894-2] Goal Plan of Care Note [code = 48365-4] Goal Plan of Care Note [code = 33100-6] Goal Plan of Care Note [code = 50396-6] Goal Plan of Care Note [code = 64151-0] Goal Plan of Care Note [code = 71493-8] Goal Plan of Care Note [code = 22866-0] Goal Plan of Care Note [code = 11301-1] Goal Plan of Care Note [code = 15804-9] Goal Plan of Care Note [code = 83814-0] Goal Plan of Care Note [code = 33493-7] Goal Plan of Care Note [code = 25797-6] Goal Plan of Care Note [code = 29368-4] Goal Plan of Care Note [code = 39136-0] Goal Plan of Care Note [code = 05493-0] Encounters Start Date/Time End Date/Time Encounter Type Admission Type Attending [facility] Care Facility Care Department Encounter ID Source 2021-06-07 08:03:35 Outpatient [facility] [id number] [facility] 2024-07-04 09:37:54 2024-07-04 09:37:54 Outpatient [facility] REYNOLD [id number] Sagar Maldonado Kennedy 2024-07-04 00:00:00 2024-07-04 00:00:00 Outpatient Visit [facility] [id number] Sagar Benavides 2024-04-03 15:11:21 2024-04-03 15:11:21 Outpatient SFA SFA [id number] Sagar Benavides 2024-04-03 00:00:00 2024-04-03 00:00:00 Outpatient Visit SFA [id number] Sagar Benavides 2024-02-16 14:00:00 2024-02-16 14:00:00 Outpatient JEN ROBINS [facility] [id number] [facility] 2024-02-16 10:12:46 2024-02-16 10:12:46 Outpatient SFA SFA [id number] Sagar Benavides 2024-02-16 00:00:00 2024-02-16 00:00:00 Outpatient Visit SFA [id number] Sagar Benavides 2024-02-10 00:00:00 2024-02-10 00:00:00 Outpatient Visit SFA [id number] Sagar Benavides 2024-01-06 08:41:09 2024-01-06 08:41:09 Outpatient SFA SFA [id number] Sagar Benavides 2024-01-05 14:44:59 2024-01-05 14:44:59 Outpatient SFA SFA [id number] Sagar Benavides 2024-01-05 00:00:00 2024-01-05 00:00:00 Outpatient Visit SFA [id number] Sagar Benavides 2023-11-01 11:14:02 2023-11-01 11:14:02 Outpatient SFA SFA [id number] Sagar Benavides 2023-11-01 00:00:00 2023-11-01 00:00:00 Outpatient Visit SFA [id number] Sagar Benavides 2023-10-10 08:26:00 2023-10-10 10:25:00 Emergency X PAULETTE MERRITT RUST ERT [id number] [facility] 2023-10-10 08:26:00 2023-10-10 10:25:00 Emergency Dahl Stephane Paulette Merritt [facility] [id number] [facility] 2023-06-27 15:13:17 2023-06-27 15:13:17 Outpatient [facility] [id number] Sagar Benavides 2023-05-26 09:03:17 2023-05-26 09:03:17 Outpatient [facility] [id number] Sagar Benavides 2023-05-17 11:31:15 2023-05-17 11:31:15 Outpatient SFA [facility] [id number] Sagar Benavides 2022-11-01 11:10:47 2022-11-01 11:10:47 Outpatient SFA [facility] [id number] Sagar Benavides 2022-09-16 10:26:47 2022-09-16 23:59:[address] [facility] [id number] [id number] [id number] [facility] 2022-09-16 10:26:46 2022-09-16 23:59:00 Outpatient R RADIOLOGY [facility] [id number] [facility] 2022-09-16 00:00:00 2022-09-16 00:00:00 Orders Only Doctor Unassigned, Finley [facility] 1.2840.114 [id number] 4.2.7.2.686 [id number] [facility] 2022-09-01 08:46:37 2022-09-01 08:46:37 Outpatient SFA [facility] [id number] Sagar Benavides 2022-05-10 00:00:00 2022-05-10 00:00:00 Outpatient Visit [id number] 2022-03-16 00:00:00 2022-03-16 00:00:00 Outpatient Visit [id number] 2020-06-12 15:30:00 2020-06-12 15:30:00 Outpatient CHRIS LOAIZA [facility] [id number] [facility] 2020-06-12 00:00:00 2020-06-12 00:00:00 Orders Only Doctor Unassigned, [place] [facility] [id number] [id number] [id number] [id number] [facility] 2019-10-10 07:12:00 2019-10-10 07:12:00 Outpatient Ige[place] _J_AH VFP VFP [id number] [facility] Results Test Description Test Time Test Comments Results Result Co mments Source COMPREHENSIVE METABOLIC [id number] 03:07:24* Test Item Value Reference Range Interpretation Comme nts GLUCOSE (test code = 2217) 104 MG/DL 70-99 H BUN (test code = 2208) 16 MG/DL 8-23 CREATININE (test code = 2214) 1.27 MG/DL 0.80-1.40 eGFR (2020 CKD-EPI) (test code = 62207) 56 ML/MIN/1.73 >60 L The NKF-ASN Taskforce recommends use of Cystatin C to confirm eGFR inadults at risk for CKD. [facility] offers eGFR with Cystatin C-Creatinineusing the 2020 CKD-EPI eGFR_creat-cystat equation (order code 3057) toincrease the accuracy of estimated GFR. For more information, contactyour senior fund accountant or see announcement [email or web address] CALC BUN/CREAT (test code = 2234) 13 RATIO 6-28 SODIUM (test code = 223) 139 MEQ/L 133-146 POTASSIUM (test code = 2227) 4.9 MEQ/L 3.5-5.4 CHLORIDE (test code = 221) 98 MEQ/L 95-107 CARBON DIOXIDE (test code = 2205) 28 MEQ/L 19-31 CALCIUM (test code = 220) 10.5 MG/DL 8.5-10.5 PROTEIN, TOTAL (test code = 2228) 7.2 G/DL 6.1-8.3 ALBUMIN (test code = 2200) 4.5 G/DL 3.5-5.2 CALC GLOBULIN (test code = 2240) 2.7 G/DL 1.9-3.7 CALC A/G RATIO (test code = 2233) 1.7 RATIO 1.0-2.6 BILIRUBIN, TOTAL (test code = 2206) 1.2 MG/DL <=1.2 ALKALINE PHOSPHATASE (test code = 2203) 77 U/L 40-125 AST (test code = 221) 22 U/L 9-50 ALT (test code = 2219) 15 U/L 5-50 LIPID [id number] 03:07:24* Test Item Value Reference Range Interpretation Comme nts CHOLESTEROL (test code = 2210) 179 MG/DL <200 TRIGLYCERIDES (test code = 2232) 111 MG/DL <150 HDL CHOLESTEROL (test code = 2220) 49 MG/DL >39 CALC LDL CHOL (test code = 2237) 108 MG/DL <100 H NOTE: CALCULATED LDL IS BASED ON TANYA-RIOS METHOD WHICHINCLUDES ADJUSTABLE TRIGLYCERIDE:VLDL CHOLESTEROL RATIO.THIS FACTOR VARIES BY MEASURED TRIGLYCERIDE AND NON-HDLCHOLESTEROL CONCENTRATIONS WITH INCREASED CALCULATED LDL SEENIN HIGHER TRIGLYCERIDE OR LOWER NON-HDL SPECIMENS. FOR MOREINFORMATION, SEE CLIENT ANNOUNCEMENT AT [email or web address] RISK RATIO LDL/HDL (test code = 223) 2.20 RATIO <3.55 COMPREHENSIVE METABOLIC [id number] 00:00:00* Test Item Value Reference Range Interpretation Comme nts GLUCOSE (test code = 2217) 104 MG/DL BUN (test code = 2208) 16 MG/DL CREATININE (test code = 2214) 1.27 MG/DL eGFR (2020 CKD-EPI) (test co de = 78117) 56 ML/MIN/1.73 CALC BUN/CREAT (test code = 2235) 13 RATIO SODIUM (test code = 2231) 139 MEQ/L POTASSIUM (test code = 2228) 4.9 MEQ/L CHLORIDE (test code = 2215) 98 MEQ/L CARBON DIOXIDE (test code = 2206) 28 MEQ/L CALCIUM (test code = 2209) 10.5 MG/DL PROTEIN, TOTAL (test code = 2229) 7.2 G/DL ALBUMIN (test code = 2201) 4.5 G/DL CALC GLOBULIN (test code = 2240) 2.7 G/DL CALC A/G RATIO (test code = 2234) 1.7 RATIO BILIRUBIN, TOTAL (test code = 2207) 1.2 MG/DL ALKALINE PHOSPHATASE (test code = 2204) 77 U/L AST (test code = 2218) 22 U/L ALT (test code = 2219) 15 U/L Sagar BenavidesLIPID [id number] 00:00:00* Test Item Value Reference Range Interpretation Comme nts CHOLESTEROL (test code = 2210) 179 MG/DL TRIGLYCERIDES (test code = 2232) 111 MG/DL HDL CHOLESTEROL (test code = 2220) 49 MG/DL CALC LDL CHOL (test code = 2237) 108 MG/DL RISK RATIO LDL/HDL (test cod e = 2238) 2.20 RATIO Sagar BenavidesPSA, [id number] 00:00:00* Test Item Value Reference Range Interpretation Comme nts PSA, TOTAL (test code = 2606) 0.19 NG/ML Sagar Maldonado KennedyOVA AND PARASITES WITH TRICHROME [id number] 16:23:13* Test Item Value Reference Range Interpretation Comme nts O AND P CONCENTRATE #1 (test code = 644824) NEGATIVE NEGATIVE O AND P TRICHROME #1 (test code = 103333) NEGATIVE NEGATIVE O AND P CONCENTRATE #2 (test code = 163144) TEST NOT PERFORMED NEGATIVE NO SPECIMEN RECEIVED FOR TESTING. CHARGES DELETED. O AND P TRICHROME #2 (test code = 730501) TEST NOT PERFORMED NEGATIVE NO SPECIMEN RECEIVED FOR TESTING. CHARGES DELETED. O AND P CONCENTRATE #3 (test code = 009269) TEST NOT PERFORMED NEGATIVE NO SPECIMEN RECEIVED FOR TESTING. CHARGES DELETED. O AND P TRICHROME #3 (test code = 408435) TEST NOT PERFORMED NEGATIVE NO SPECIMEN RECEIVED FOR TESTING. CHARGES DELETED. UNLESS OTHERWISE INDICATED, ALL TESTING PERFORMED AT [facility] [address] [place] [address] MANAGER SEARCH: ELLEN GIL M.D. CLIA NUMBER [id number] [place]. [id number] OVA AND PARASITES WITH TRICHROME [id number] 00:00:00* Test Item Value Reference Range Interpretation Comme nts O AND P CONCENTRATE #1 (test code = 435136) NEGATIVE O AND P TRICHROME #1 (test code = 072895) NEGATIVE O AND P CONCENTRATE #2 (test code = 116321) TEST NOT PERFORMED O AND P TRICHROME #2 (test code = 354621) TEST NOT PERFORMED O AND P CONCENTRATE #3 (test code = 128112) TEST NOT PERFORMED O AND P TRICHROME #3 (test code = 318108) TEST NOT PERFORMED Sagar F AustinOVA AND PARASITES WITH TRICHROME [id number] 00:00:00* Test Item Value Reference Range Interpretation Comme nts O AND P CONCENTRATE #1 (test code = 245090) NEGATIVE O AND P TRICHROME #1 (test code = 328761) NEGATIVE O AND P CONCENTRATE #2 (test code = 259607) TEST NOT PERFORMED O AND P TRICHROME #2 (test code = 568374) TEST NOT PERFORMED O AND P CONCENTRATE #3 (test code = 836976) TEST NOT PERFORMED O AND P TRICHROME #3 (test code = 210090) TEST NOT PERFORMED Sagar TownsendNAIF, [id number] 08:14:28SPECIMEN NUMBER: [id number] CULTURE, STOOL SPECIMEN NUMBER: [id number] SOURCE: STOOL REPORT STATUS: FINAL FINAL REPORT: 02/19/2024 NORMAL ENTERIC KYEL RECOVERED. NO SALMONELLA, SHIGELLA, CAMPYLOBACTER, AEROMONAS OR PLESIOMONAS CULTURED.CULTURE, STOOL 2024-02-19 00:00:00* Test Item Value Reference Range Interpretation Comme nts CULTURE, STOOL (test code = 98473) SPECIMEN NUMBER: [id number] Sagarjuan Joe, [id number] 00:00:00* Test Item Value Reference Range Interpretation Comme nts CULTURE, STOOL (test code = 40846) SPECIMEN NUMBER: [id number] Sagar BenavidesCOMPREHENSIVE METABOLIC [id number] 05:39:48* Test Item Value Reference Range Interpretation Comme nts GLUCOSE (test code = 2217) 101 MG/DL 70-99 H BUN (test code = 2208) 18 MG/DL 8-23 CREATININE (test code = 2214) 1.11 MG/DL 0.80-1.40 eGFR (2020 CKD-EPI) (test code = 00855) 67 ML/MIN/1.73 >60 CALC BUN/CREAT (test code = 2235) 16 RATIO 6-28 SODIUM (test code = 223) 138 MEQ/L 133-146 POTASSIUM (test code = 2228) 4.2 MEQ/L 3.5-5.4 CHLORIDE (test code = 2215) 101 MEQ/L 95-107 CARBON DIOXIDE (test code = 2206) 25 MEQ/L 19-31 CALCIUM (test code = 2209) 9.6 MG/DL 8.5-10.5 PROTEIN, TOTAL (test code = 2229) 6.5 G/DL 6.1-8.3 ALBUMIN (test code = 2201) 4.0 G/DL 3.5-5.2 CALC GLOBULIN (test code = 2240) 2.5 G/DL 1.9-3.7 CALC A/G RATIO (test code = 2234) 1.6 RATIO 1.0-2.6 BILIRUBIN, TOTAL (test code = 2207) 0.7 MG/DL <=1.2 ALKALINE PHOSPHATASE (test code = 2204) 79 U/L 40-125 AST (test code = 2218) 36 U/L 9-50 ALT (test code = 2219) 59 U/L 5-50 H UNLESS OTHERWISE INDICATED, ALL TESTING PERFORMED AT [facility] [address] [place] [address] MANAGER SEARCH: ELLEN GIL M.D. CLIA NUMBER [id number] [place]. [id number] CBC W/AUTO DIFF WITH [id number] 02:13:39* Test Item Value Reference Range Interpretation Comme nts WBC (test code = 1001) 9.5 K/UL 3.5-11.0 RBC (test code = 1002) 4.55 M/UL 4.50-6.10 HEMOGLOBIN (test code = 1003) 15.0 G/DL 13.5-17.0 HEMATOCRIT (test code = 1004) 43.5 % 40.0-51.0 MCV (test code = 1005) 95.6 fL 80.0-99.0 MCH (test code = 1006) 33.0 PG 25.0-33.0 MCHC (test code = 1007) 34.5 G/DL 31.0-36.0 RDW (test code = 1038) 12.2 % 11.5-15.0 NEUTROPHILS (test code = 1008) 67.7 % LYMPHOCYTES (test code = 1010) 19.6 % MONOCYTES (test code = 1011) 6.1 % EOSINOPHILS (test code = 1012) 1.3 % BASOPHILS (test code = 1013) 0.4 % IMMATURE GRANULOCYTES (test code = 1036) 4.9 % NUCLEATED RBCS (test code = 1065) 0.0 /100 WBC'S See_Comment [Automated messa ge] The system which generated this result transmitted reference range: 0.0. The reference range was not used to interpret this result as normal/abnormal. PLATELET COUNT (test code = 1015) 232 K/UL 130-400 ABSOLUTE NEUTROPHILS (test code = 1066) 6.43 K/UL 1.50-7.50 ABSOLUTE LYMPHOCYTES (test code = 1067) 1.86 K/UL 1.00-4.00 ABSOLUTE MONOCYTES (test code = 1068) 0.58 K/UL 0.20-1.00 ABSOLUTE EOSINOPHILS (test code = 1040) 0.12 K/UL 0.00-0.50 ABSOLUTE BASOPHILS (test code = 1069) 0.04 K/UL 0.00-0.20 ABS IMMATURE GRANULOCYTES (test code = 1020) 0.47 K/UL 0.00-0.10 H ABS NUCLEATED RBCS (test code = 99578) 0.00 K/UL 0.00-0.11 CBC W/AUTO [id number] 00:00:00* Test Item Value Reference Range Interpretation Comme nts WBC (test code = 1001) 9.5 K/UL RBC (test code = 1002) 4.55 M/UL HEMOGLOBIN (test code = 1003) 15.0 G/DL HEMATOCRIT (test code = 1004) 43.5 % MCV (test code = 1005) 95.6 fL MCH (test code = 1006) 33.0 PG MCHC (test code = 1007) 34.5 G/DL RDW (test code = 1038) 12.2 % NEUTROPHILS (test code = 1008) 67.7 % LYMPHOCYTES (test code = 1010) 19.6 % MONOCYTES (test code = 1011) 6.1 % EOSINOPHILS (test code = 1012) 1.3 % BASOPHILS (test code = 1013) 0.4 % IMMATURE GRANULOCYTES (test code = 1036) 4.9 % NUCLEATED RBCS (test code = 1065) 0.0 /100WBC'S PLATELET COUNT (test code = 1015) 232 K/UL ABSOLUTE NEUTROPHILS (test c ode = 1066) 6.43 K/UL ABSOLUTE LYMPHOCYTES (test c ode = 1067) 1.86 K/UL ABSOLUTE MONOCYTES (test cod e = 1068) 0.58 K/UL ABSOLUTE EOSINOPHILS (test c ode = 1040) 0.12 K/UL ABSOLUTE BASOPHILS (test cod e = 1069) 0.04 K/UL ABS IMMATURE GRANULOCYTES (t est code = 1020) 0.47 K/UL ABS NUCLEATED RBCS (test cod e = 45093) 0.00 K/UL Sagar BenavidesCOMPREHENSIVE METABOLIC [id number] 00:00:00* Test Item Value Reference Range Interpretation Comme nts GLUCOSE (test code = 2217) 101 MG/DL BUN (test code = 2208) 18 MG/DL CREATININE (test code = 2214) 1.11 MG/DL eGFR (2020 CKD-EPI) (test co de = 46378) 67 ML/MIN/1.73 CALC BUN/CREAT (test code = 2235) 16 RATIO SODIUM (test code = 2231) 138 MEQ/L POTASSIUM (test code = 2228) 4.2 MEQ/L CHLORIDE (test code = 2215) 101 MEQ/L CARBON DIOXIDE (test code = 2206) 25 MEQ/L CALCIUM (test code = 2209) 9.6 MG/DL PROTEIN, TOTAL (test code = 2229) 6.5 G/DL ALBUMIN (test code = 2201) 4.0 G/DL CALC GLOBULIN (test code = 2240) 2.5 G/DL CALC A/G RATIO (test code = 2234) 1.6 RATIO BILIRUBIN, TOTAL (test code = 2207) 0.7 MG/DL ALKALINE PHOSPHATASE (test code = 2204) 79 U/L AST (test code = 2218) 36 U/L ALT (test code = 2219) 59 U/L Sagar BenavidesCBC W/AUTO [id number] 00:00:00* Test Item Value Reference Range Interpretation Comme nts WBC (test code = 1001) 9.5 K/UL RBC (test code = 1002) 4.55 M/UL HEMOGLOBIN (test code = 1003) 15.0 G/DL HEMATOCRIT (test code = 1004) 43.5 % MCV (test code = 1005) 95.6 fL MCH (test code = 1006) 33.0 PG MCHC (test code = 1007) 34.5 G/DL RDW (test code = 1038) 12.2 % NEUTROPHILS (test code = 1008) 67.7 % LYMPHOCYTES (test code = 1010) 19.6 % MONOCYTES (test code = 1011) 6.1 % EOSINOPHILS (test code = 1012) 1.3 % BASOPHILS (test code = 1013) 0.4 % IMMATURE GRANULOCYTES (test code = 1036) 4.9 % NUCLEATED RBCS (test code = 1065) 0.0 /100WBC'S PLATELET COUNT (test code = 1015) 232 K/UL ABSOLUTE NEUTROPHILS (test c ode = 1066) 6.43 K/UL ABSOLUTE LYMPHOCYTES (test c ode = 1067) 1.86 K/UL ABSOLUTE MONOCYTES (test cod e = 1068) 0.58 K/UL ABSOLUTE EOSINOPHILS (test c ode = 1040) 0.12 K/UL ABSOLUTE BASOPHILS (test cod e = 1069) 0.04 K/UL ABS IMMATURE GRANULOCYTES (t est code = 1020) 0.47 K/UL ABS NUCLEATED RBCS (test cod e = 49911) 0.00 K/UL Sagar Joel KennedyCOMPREHENSIVE METABOLIC [id number] 00:00:00* Test Item Value Reference Range Interpretation Comme nts GLUCOSE (test code = 2217) 101 MG/DL BUN (test code = 2208) 18 MG/DL CREATININE (test code = 2214) 1.11 MG/DL eGFR (2020 CKD-EPI) (test co de = 06660) 67 ML/MIN/1.73 CALC BUN/CREAT (test code = 2235) 16 RATIO SODIUM (test code = 2231) 138 MEQ/L POTASSIUM (test code = 2228) 4.2 MEQ/L CHLORIDE (test code = 2215) 101 MEQ/L CARBON DIOXIDE (test code = 2206) 25 MEQ/L CALCIUM (test code = 2209) 9.6 MG/DL PROTEIN, TOTAL (test code = 2229) 6.5 G/DL ALBUMIN (test code = 2201) 4.0 G/DL CALC GLOBULIN (test code = 2240) 2.5 G/DL CALC A/G RATIO (test code = 2234) 1.6 RATIO BILIRUBIN, TOTAL (test code = 2207) 0.7 MG/DL ALKALINE PHOSPHATASE (test code = 2204) 79 U/L AST (test code = 2218) 36 U/L ALT (test code = 2219) 59 U/L [facility]/AUTO [id number] 00:00:00* Test Item Value Reference Range Interpretation Comme nts WBC (test code = 1001) 9.5 K/UL RBC (test code = 1002) 4.55 M/UL HEMOGLOBIN (test code = 1003) 15.0 G/DL HEMATOCRIT (test code = 1004) 43.5 % MCV (test code = 1005) 95.6 fL MCH (test code = 1006) 33.0 PG MCHC (test code = 1007) 34.5 G/DL RDW (test code = 1038) 12.2 % NEUTROPHILS (test code = 1008) 67.7 % LYMPHOCYTES (test code = 1010) 19.6 % MONOCYTES (test code = 1011) 6.1 % EOSINOPHILS (test code = 1012) 1.3 % BASOPHILS (test code = 1013) 0.4 % IMMATURE GRANULOCYTES (test code = 1036) 4.9 % NUCLEATED RBCS (test code = 1065) 0.0 /100WBC'S PLATELET COUNT (test code = 1015) 232 K/UL ABSOLUTE NEUTROPHILS (test c ode = 1066) 6.43 K/UL ABSOLUTE LYMPHOCYTES (test c ode = 1067) 1.86 K/UL ABSOLUTE MONOCYTES (test cod e = 1068) 0.58 K/UL ABSOLUTE EOSINOPHILS (test c ode = 1040) 0.12 K/UL ABSOLUTE BASOPHILS (test cod e = 1069) 0.04 K/UL ABS IMMATURE GRANULOCYTES (t est code = 1020) 0.47 K/UL ABS NUCLEATED RBCS (test cod e = 99290) 0.00 K/UL Sagar BenavidesCOMPREHENSIVE METABOLIC [id number] 00:00:00* Test Item Value Reference Range Interpretation Comme nts GLUCOSE (test code = 2217) 101 MG/DL BUN (test code = 2208) 18 MG/DL CREATININE (test code = 2214) 1.11 MG/DL eGFR (2020 CKD-EPI) (test co de = 91270) 67 ML/MIN/1.73 CALC BUN/CREAT (test code = 2235) 16 RATIO SODIUM (test code = 2231) 138 MEQ/L POTASSIUM (test code = 2228) 4.2 MEQ/L CHLORIDE (test code = 2215) 101 MEQ/L CARBON DIOXIDE (test code = 2206) 25 MEQ/L CALCIUM (test code = 2209) 9.6 MG/DL PROTEIN, TOTAL (test code = 2229) 6.5 G/DL ALBUMIN (test code = 2201) 4.0 G/DL CALC GLOBULIN (test code = 2240) 2.5 G/DL CALC A/G RATIO (test code = 2234) 1.6 RATIO BILIRUBIN, TOTAL (test code = 2207) 0.7 MG/DL ALKALINE PHOSPHATASE (test code = 2204) 79 U/L AST (test code = 2218) 36 U/L ALT (test code = 2219) 59 U/L Sagar Maldonado AustinLIPID [id number] 09:16:19* Test Item Value Reference Range Interpretation Comme nts CHOLESTEROL (test code = 2210) 135 MG/DL <200 TRIGLYCERIDES (test code = 2232) 63 MG/DL <150 HDL CHOLESTEROL (test code = 2220) 43 MG/DL >39 CALC LDL CHOL (test code = 2237) 78 MG/DL <100 NOTE: CALCULATED LDL IS BASED ON TANYA-RIOS METHOD WHICHINCLUDES ADJUSTABLE TRIGLYCERIDE:VLDL CHOLESTEROL RATIO.THIS FACTOR VARIES BY MEASURED TRIGLYCERIDE AND NON-HDLCHOLESTEROL CONCENTRATIONS WITH INCREASED CALCULATED LDL SEENIN HIGHER TRIGLYCERIDE OR LOWER NON-HDL SPECIMENS. FOR MOREINFORMATION, SEE CLIENT ANNOUNCEMENT AT [email or web address] RISK RATIO LDL/HDL (test code = 2237) 1.81 RATIO <3.55 COMPREHENSIVE METABOLIC [id number] 09:16:19* Test Item Value Reference Range Interpretation Comme nts GLUCOSE (test code = 2216) 96 MG/DL 70-99 BUN (test code = 2207) 24 MG/DL 8-23 H CREATININE (test code = 221) 1.35 MG/DL 0.80-1.40 eGFR (2020 CKD-EPI) (test code = 06363) 53 ML/MIN/1.73 >60 L The NKF-ASN Taskforce recommends use of Cystatin C to confirm eGFR inadults at risk for CKD. [facility] offers eGFR with Cystatin C-Creatinineusing the 2020 CKD-EPI eGFR_creat-cystat equation (order code 3057) toincrease the accuracy of estimated GFR. For more information, contactyour senior fund accountant or see announcement [email or web address] CALC BUN/CREAT (test code = 2234) 18 RATIO 6-28 SODIUM (test code = 2230) 141 MEQ/L 133-146 POTASSIUM (test code = 2227) 4.8 MEQ/L 3.5-5.4 CHLORIDE (test code = 2214) 103 MEQ/L 95-107 CARBON DIOXIDE (test code = 2205) 27 MEQ/L 19-31 CALCIUM (test code = 220) 9.5 MG/DL 8.5-10.5 PROTEIN, TOTAL (test code = 222) 6.4 G/DL 6.1-8.3 ALBUMIN (test code = 220) 4.0 G/DL 3.5-5.2 CALC GLOBULIN (test code = 2240) 2.4 G/DL 1.9-3.7 CALC A/G RATIO (test code = 223) 1.7 RATIO 1.0-2.6 BILIRUBIN, TOTAL (test code = 2206) 0.7 MG/DL <=1.2 ALKALINE PHOSPHATASE (test code = 2203) 82 U/L 40-125 AST (test code = 2218) 19 U/L 9-50 ALT (test code = 2219) 12 U/L 5-50 HEMOGLOBIN [id number] 06:31:42* Test Item Value Reference Range Interpretation Comme nts HEMOGLOBIN A1c (test code = 55628) 5.5 % 4.2-5.6 UNLESS OTHERWISE INDICATED, ALL TESTING PERFORMED AT [facility] [address] [place] [id number] MANAGER SEARCH: ELLEN GIL M.D. [place] NUMBER [id number] [place]. [id number] CBC W/AUTO DIFF WITH [id number] 05:56:42* Test Item Value Reference Range Interpretation Comme nts WBC (test code = 1001) 5.1 K/UL 3.5-11.0 RBC (test code = 1002) 4.27 M/UL 4.50-6.10 L HEMOGLOBIN (test code = 1003) 14.0 G/DL 13.5-17.0 HEMATOCRIT (test code = 1004) 41.7 % 40.0-51.0 MCV (test code = 1005) 97.7 fL 80.0-99.0 MCH (test code = 1006) 32.8 PG 25.0-33.0 MCHC (test code = 1007) 33.6 G/DL 31.0-36.0 RDW (test code = 1038) 12.4 % 11.5-15.0 NEUTROPHILS (test code = 1008) 66.3 % LYMPHOCYTES (test code = 1010) 23.0 % MONOCYTES (test code = 1011) 8.1 % EOSINOPHILS (test code = 1012) 1.4 % BASOPHILS (test code = 1013) 0.6 % IMMATURE GRANULOCYTES (test code = 1036) 0.6 % NUCLEATED RBCS (test code = 1065) 0.0 /100 WBC'S See_Comment [Automated SeeClickFixa ge] The system which generated this result transmitted reference range: 0.0. The reference range was not used to interpret this result as normal/abnormal. PLATELET COUNT (test code = 1015) 162 K/UL 130-400 ABSOLUTE NEUTROPHILS (test code = 1066) 3.37 K/UL 1.50-7.50 ABSOLUTE LYMPHOCYTES (test code = 1067) 1.17 K/UL 1.00-4.00 ABSOLUTE MONOCYTES (test code = 1068) 0.41 K/UL 0.20-1.00 ABSOLUTE EOSINOPHILS (test code = 1040) 0.07 K/UL 0.00-0.50 ABSOLUTE BASOPHILS (test code = 1069) 0.03 K/UL 0.00-0.20 ABS IMMATURE GRANULOCYTES (test code = 1020) 0.03 K/UL 0.00-0.10 ABS NUCLEATED RBCS (test code = 90390) 0.00 K/UL 0.00-0.11 COMPREHENSIVE METABOLIC [id number] 00:00:00* Test Item Value Reference Range Interpretation Comme nts GLUCOSE (test code = 2217) 96 MG/DL BUN (test code = 2208) 24 MG/DL CREATININE (test code = 2214) 1.35 MG/DL eGFR (2020 CKD-EPI) (test co de = 66575) 53 ML/MIN/1.73 CALC BUN/CREAT (test code = 2235) 18 RATIO SODIUM (test code = 2231) 141 MEQ/L POTASSIUM (test code = 2228) 4.8 MEQ/L CHLORIDE (test code = 2215) 103 MEQ/L CARBON DIOXIDE (test code = 2206) 27 MEQ/L CALCIUM (test code = 2209) 9.5 MG/DL PROTEIN, TOTAL (test code = 2229) 6.4 G/DL ALBUMIN (test code = 2201) 4.0 G/DL CALC GLOBULIN (test code = 2240) 2.4 G/DL CALC A/G RATIO (test code = 2234) 1.7 RATIO BILIRUBIN, TOTAL (test code = 2207) 0.7 MG/DL ALKALINE PHOSPHATASE (test code = 2204) 82 U/L AST (test code = 2218) 19 U/L ALT (test code = 2219) 12 U/L Sagar F KennedyCBC W/AUTO [id number] 00:00:00* Test Item Value Reference Range Interpretation Comme nts WBC (test code = 1001) 5.1 K/UL RBC (test code = 1002) 4.27 M/UL HEMOGLOBIN (test code = 1003) 14.0 G/DL HEMATOCRIT (test code = 1004) 41.7 % MCV (test code = 1005) 97.7 fL MCH (test code = 1006) 32.8 PG MCHC (test code = 1007) 33.6 G/DL RDW (test code = 1038) 12.4 % NEUTROPHILS (test code = 1008) 66.3 % LYMPHOCYTES (test code = 1010) 23.0 % MONOCYTES (test code = 1011) 8.1 % EOSINOPHILS (test code = 1012) 1.4 % BASOPHILS (test code = 1013) 0.6 % IMMATURE GRANULOCYTES (test code = 1036) 0.6 % NUCLEATED RBCS (test code = 1065) 0.0 /100WBC'S PLATELET COUNT (test code = 1015) 162 K/UL ABSOLUTE NEUTROPHILS (test c ode = 1066) 3.37 K/UL ABSOLUTE LYMPHOCYTES (test c ode = 1067) 1.17 K/UL ABSOLUTE MONOCYTES (test cod e = 1068) 0.41 K/UL ABSOLUTE EOSINOPHILS (test c ode = 1040) 0.07 K/UL ABSOLUTE BASOPHILS (test cod e = 1069) 0.03 K/UL ABS IMMATURE GRANULOCYTES (t est code = 1020) 0.03 K/UL ABS NUCLEATED RBCS (test cod e = 32559) 0.00 K/UL Sagar Maldonado AustinLIPID [id number] 00:00:00* Test Item Value Reference Range Interpretation Comme nts CHOLESTEROL (test code = 2210) 135 MG/DL TRIGLYCERIDES (test code = 2232) 63 MG/DL HDL CHOLESTEROL (test code = 2220) 43 MG/DL CALC LDL CHOL (test code = 2237) 78 MG/DL RISK RATIO LDL/HDL (test cod e = 2238) 1.81 RATIO Sagar BenavidesHEMOGLOBIN [id number] 00:00:00* Test Item Value Reference Range Interpretation Comme nts HEMOGLOBIN A1c (test code = 27863) 5.5 % Sagar Maldonado KennedyCOMPREHENSIVE METABOLIC [id number] 00:00:00* Test Item Value Reference Range Interpretation Comme nts GLUCOSE (test code = 2217) 96 MG/DL BUN (test code = 2208) 24 MG/DL CREATININE (test code = 2214) 1.35 MG/DL eGFR (2020 CKD-EPI) (test co de = 73609) 53 ML/MIN/1.73 CALC BUN/CREAT (test code = 2235) 18 RATIO SODIUM (test code = 2231) 141 MEQ/L POTASSIUM (test code = 2228) 4.8 MEQ/L CHLORIDE (test code = 2215) 103 MEQ/L CARBON DIOXIDE (test code = 2206) 27 MEQ/L CALCIUM (test code = 2209) 9.5 MG/DL PROTEIN, TOTAL (test code = 2229) 6.4 G/DL ALBUMIN (test code = 2201) 4.0 G/DL CALC GLOBULIN (test code = 2240) 2.4 G/DL CALC A/G RATIO (test code = 2234) 1.7 RATIO BILIRUBIN, TOTAL (test code = 2207) 0.7 MG/DL ALKALINE PHOSPHATASE (test code = 2204) 82 U/L AST (test code = 2218) 19 U/L ALT (test code = 2219) 12 U/L [facility] Maldonado [facility]/AUTO [id number] 00:00:00* Test Item Value Reference Range Interpretation Comme nts WBC (test code = 1001) 5.1 K/UL RBC (test code = 1002) 4.27 M/UL HEMOGLOBIN (test code = 1003) 14.0 G/DL HEMATOCRIT (test code = 1004) 41.7 % MCV (test code = 1005) 97.7 fL MCH (test code = 1006) 32.8 PG MCHC (test code = 1007) 33.6 G/DL RDW (test code = 1038) 12.4 % NEUTROPHILS (test code = 1008) 66.3 % LYMPHOCYTES (test code = 1010) 23.0 % MONOCYTES (test code = 1011) 8.1 % EOSINOPHILS (test code = 1012) 1.4 % BASOPHILS (test code = 1013) 0.6 % IMMATURE GRANULOCYTES (test code = 1036) 0.6 % NUCLEATED RBCS (test code = 1065) 0.0 /100WBC'S PLATELET COUNT (test code = 1015) 162 K/UL ABSOLUTE NEUTROPHILS (test c ode = 1066) 3.37 K/UL ABSOLUTE LYMPHOCYTES (test c ode = 1067) 1.17 K/UL ABSOLUTE MONOCYTES (test cod e = 1068) 0.41 K/UL ABSOLUTE EOSINOPHILS (test c ode = 1040) 0.07 K/UL ABSOLUTE BASOPHILS (test cod e = 1069) 0.03 K/UL ABS IMMATURE GRANULOCYTES (t est code = 1020) 0.03 K/UL ABS NUCLEATED RBCS (test cod e = 30655) 0.00 K/UL Sagar BenavidesLIPID [id number] 00:00:00* Test Item Value Reference Range Interpretation Comme nts CHOLESTEROL (test code = 2210) 135 MG/DL TRIGLYCERIDES (test code = 2232) 63 MG/DL HDL CHOLESTEROL (test code = 2220) 43 MG/DL CALC LDL CHOL (test code = 2237) 78 MG/DL RISK RATIO LDL/HDL (test cod e = 2238) 1.81 RATIO Sagar BenavidesHEMOGLOBIN [id number] 00:00:00* Test Item Value Reference Range Interpretation Comme nts HEMOGLOBIN A1c (test code = 15655) 5.5 % Sagar BenavidesCOMPREHENSIVE METABOLIC [id number] 00:00:00* Test Item Value Reference Range Interpretation Comme nts GLUCOSE (test code = 2217) 96 MG/DL BUN (test code = 2208) 24 MG/DL CREATININE (test code = 2214) 1.35 MG/DL eGFR (2020 CKD-EPI) (test co de = 20169) 53 ML/MIN/1.73 CALC BUN/CREAT (test code = 2235) 18 RATIO SODIUM (test code = 2231) 141 MEQ/L POTASSIUM (test code = 2228) 4.8 MEQ/L CHLORIDE (test code = 2215) 103 MEQ/L CARBON DIOXIDE (test code = 2206) 27 MEQ/L CALCIUM (test code = 2209) 9.5 MG/DL PROTEIN, TOTAL (test code = 2229) 6.4 G/DL ALBUMIN (test code = 2201) 4.0 G/DL CALC GLOBULIN (test code = 2240) 2.4 G/DL CALC A/G RATIO (test code = 2234) 1.7 RATIO BILIRUBIN, TOTAL (test code = 2207) 0.7 MG/DL ALKALINE PHOSPHATASE (test code = 2204) 82 U/L AST (test code = 2218) 19 U/L ALT (test code = 2219) 12 U/L Sagar BenavidesCBC W/AUTO [id number] 00:00:00* Test Item Value Reference Range Interpretation Comme nts WBC (test code = 1001) 5.1 K/UL RBC (test code = 1002) 4.27 M/UL HEMOGLOBIN (test code = 1003) 14.0 G/DL HEMATOCRIT (test code = 1004) 41.7 % MCV (test code = 1005) 97.7 fL MCH (test code = 1006) 32.8 PG MCHC (test code = 1007) 33.6 G/DL RDW (test code = 1038) 12.4 % NEUTROPHILS (test code = 1008) 66.3 % LYMPHOCYTES (test code = 1010) 23.0 % MONOCYTES (test code = 1011) 8.1 % EOSINOPHILS (test code = 1012) 1.4 % BASOPHILS (test code = 1013) 0.6 % IMMATURE GRANULOCYTES (test code = 1036) 0.6 % NUCLEATED RBCS (test code = 1065) 0.0 /100WBC'S PLATELET COUNT (test code = 1015) 162 K/UL ABSOLUTE NEUTROPHILS (test c ode = 1066) 3.37 K/UL ABSOLUTE LYMPHOCYTES (test c ode = 1067) 1.17 K/UL ABSOLUTE MONOCYTES (test cod e = 1068) 0.41 K/UL ABSOLUTE EOSINOPHILS (test c ode = 1040) 0.07 K/UL ABSOLUTE BASOPHILS (test cod e = 1069) 0.03 K/UL ABS IMMATURE GRANULOCYTES (t est code = 1020) 0.03 K/UL ABS NUCLEATED RBCS (test cod e = 65314) 0.00 K/UL Sagar Maldonado AustinLIPID [id number] 00:00:00* Test Item Value Reference Range Interpretation Comme nts CHOLESTEROL (test code = 2210) 135 MG/DL TRIGLYCERIDES (test code = 2232) 63 MG/DL HDL CHOLESTEROL (test code = 2220) 43 MG/DL CALC LDL CHOL (test code = 2237) 78 MG/DL RISK RATIO LDL/HDL (test cod e = 2238) 1.81 RATIO Sagar BenavidesHEMOGLOBIN [id number] 00:00:00* Test Item Value Reference Range Interpretation Comme nts HEMOGLOBIN A1c (test code = 99666) 5.5 % Sagar Maldonado KennedyCOMPREHENSIVE METABOLIC [id number] 00:00:00* Test Item Value Reference Range Interpretation Comme nts GLUCOSE (test code = 2217) 96 MG/DL BUN (test code = 2208) 24 MG/DL CREATININE (test code = 2214) 1.35 MG/DL eGFR (2020 CKD-EPI) (test co de = 36342) 53 ML/MIN/1.73 CALC BUN/CREAT (test code = 2235) 18 RATIO SODIUM (test code = 2231) 141 MEQ/L POTASSIUM (test code = 2228) 4.8 MEQ/L CHLORIDE (test code = 2215) 103 MEQ/L CARBON DIOXIDE (test code = 2206) 27 MEQ/L CALCIUM (test code = 2209) 9.5 MG/DL PROTEIN, TOTAL (test code = 2229) 6.4 G/DL ALBUMIN (test code = 2201) 4.0 G/DL CALC GLOBULIN (test code = 2240) 2.4 G/DL CALC A/G RATIO (test code = 2234) 1.7 RATIO BILIRUBIN, TOTAL (test code = 2207) 0.7 MG/DL ALKALINE PHOSPHATASE (test code = 2204) 82 U/L AST (test code = 2218) 19 U/L ALT (test code = 2219) 12 U/L Sagar Maldonado [facility] W/AUTO [id number] 00:00:00* Test Item Value Reference Range Interpretation Comme nts WBC (test code = 1001) 5.1 K/UL RBC (test code = 1002) 4.27 M/UL HEMOGLOBIN (test code = 1003) 14.0 G/DL HEMATOCRIT (test code = 1004) 41.7 % MCV (test code = 1005) 97.7 fL MCH (test code = 1006) 32.8 PG MCHC (test code = 1007) 33.6 G/DL RDW (test code = 1038) 12.4 % NEUTROPHILS (test code = 1008) 66.3 % LYMPHOCYTES (test code = 1010) 23.0 % MONOCYTES (test code = 1011) 8.1 % EOSINOPHILS (test code = 1012) 1.4 % BASOPHILS (test code = 1013) 0.6 % IMMATURE GRANULOCYTES (test code = 1036) 0.6 % NUCLEATED RBCS (test code = 1065) 0.0 /100WBC'S PLATELET COUNT (test code = 1015) 162 K/UL ABSOLUTE NEUTROPHILS (test c ode = 1066) 3.37 K/UL ABSOLUTE LYMPHOCYTES (test c ode = 1067) 1.17 K/UL ABSOLUTE MONOCYTES (test cod e = 1068) 0.41 K/UL ABSOLUTE EOSINOPHILS (test c ode = 1040) 0.07 K/UL ABSOLUTE BASOPHILS (test cod e = 1069) 0.03 K/UL ABS IMMATURE GRANULOCYTES (t est code = 1020) 0.03 K/UL ABS NUCLEATED RBCS (test cod e = 99083) 0.00 K/UL Sagar BenavidesLIPID [id number] 00:00:00* Test Item Value Reference Range Interpretation Comme nts CHOLESTEROL (test code = 2210) 135 MG/DL TRIGLYCERIDES (test code = 2232) 63 MG/DL HDL CHOLESTEROL (test code = 2220) 43 MG/DL CALC LDL CHOL (test code = 2237) 78 MG/DL RISK RATIO LDL/HDL (test cod e = 2238) 1.81 RATIO Sagar BenavidesHEMOGLOBIN [id number] 00:00:00* Test Item Value Reference Range Interpretation Comme nts HEMOGLOBIN A1c (test code = 40357) 5.5 % Sagar BenavidesCOMPREHENSIVE METABOLIC [id number] 00:00:00* Test Item Value Reference Range Interpretation Comme nts GLUCOSE (test code = 2217) 96 MG/DL BUN (test code = 2208) 24 MG/DL CREATININE (test code = 2214) 1.35 MG/DL eGFR (2020 CKD-EPI) (test co de = 02332) 53 ML/MIN/1.73 CALC BUN/CREAT (test code = 2235) 18 RATIO SODIUM (test code = 2231) 141 MEQ/L POTASSIUM (test code = 2228) 4.8 MEQ/L CHLORIDE (test code = 2215) 103 MEQ/L CARBON DIOXIDE (test code = 2206) 27 MEQ/L CALCIUM (test code = 2209) 9.5 MG/DL PROTEIN, TOTAL (test code = 2229) 6.4 G/DL ALBUMIN (test code = 2201) 4.0 G/DL CALC GLOBULIN (test code = 2240) 2.4 G/DL CALC A/G RATIO (test code = 2234) 1.7 RATIO BILIRUBIN, TOTAL (test code = 2207) 0.7 MG/DL ALKALINE PHOSPHATASE (test code = 2204) 82 U/L AST (test code = 2218) 19 U/L ALT (test code = 2219) 12 U/L Sagar BenavidesCBC W/AUTO [id number] 00:00:00* Test Item Value Reference Range Interpretation Comme nts WBC (test code = 1001) 5.1 K/UL RBC (test code = 1002) 4.27 M/UL HEMOGLOBIN (test code = 1003) 14.0 G/DL HEMATOCRIT (test code = 1004) 41.7 % MCV (test code = 1005) 97.7 fL MCH (test code = 1006) 32.8 PG MCHC (test code = 1007) 33.6 G/DL RDW (test code = 1038) 12.4 % NEUTROPHILS (test code = 1008) 66.3 % LYMPHOCYTES (test code = 1010) 23.0 % MONOCYTES (test code = 1011) 8.1 % EOSINOPHILS (test code = 1012) 1.4 % BASOPHILS (test code = 1013) 0.6 % IMMATURE GRANULOCYTES (test code = 1036) 0.6 % NUCLEATED RBCS (test code = 1065) 0.0 /100WBC'S PLATELET COUNT (test code = 1015) 162 K/UL ABSOLUTE NEUTROPHILS (test c ode = 1066) 3.37 K/UL ABSOLUTE LYMPHOCYTES (test c ode = 1067) 1.17 K/UL ABSOLUTE MONOCYTES (test cod e = 1068) 0.41 K/UL ABSOLUTE EOSINOPHILS (test c ode = 1040) 0.07 K/UL ABSOLUTE BASOPHILS (test cod e = 1069) 0.03 K/UL ABS IMMATURE GRANULOCYTES (t est code = 1020) 0.03 K/UL ABS NUCLEATED RBCS (test cod e = 70001) 0.00 K/UL Sagar BenavidesLIPID [id number] 00:00:00* Test Item Value Reference Range Interpretation Comme nts CHOLESTEROL (test code = 2210) 135 MG/DL TRIGLYCERIDES (test code = 2232) 63 MG/DL HDL CHOLESTEROL (test code = 2220) 43 MG/DL CALC LDL CHOL (test code = 2237) 78 MG/DL RISK RATIO LDL/HDL (test cod e = 2238) 1.81 RATIO Sagar BenavidesHEMOGLOBIN [id number] 00:00:00* Test Item Value Reference Range Interpretation Comme nts HEMOGLOBIN A1c (test code = 00975) 5.5 % Sagar BenavidesXR PELVIS <3 [id number] 16:00:42EXAM: XR PELVIS <3 VW HISTORY: 83 years old Male with R posterior hip/gluteal pain COMPARISON: None available FINDINGS: Radiographs of the pelvis demonstrate no acute fractures or dislocations.Moderate osteoporosis of bilateral hips are noted in the form of medialjoint space narrowing, subchondral sclerosis and marginal osteophytosis.Surgical clips project over the pubis symphysis region. Abdominal aorticstent extending into the bilateral iliacs is incompletely visualized.Pelvic phleboliths are noted.[facility] HEMOGLOBIN [id number] 04:34:16* Test Item Value Reference Range Interpretation Comme [facility] HEMOGLOBIN A1c (test code = 75788) 5.6 % 4.2-5.6 LIPID [id number] 02:53:05* Test Item Value Reference Range Interpretation Comme nts CHOLESTEROL (test code = 2210) 133 MG/DL <200 TRIGLYCERIDES (test code = 2232) 74 MG/DL <150 HDL CHOLESTEROL (test code = 2220) 40 MG/DL >39 CALC LDL CHOL (test code = 2237) 78 MG/DL <100 NOTE: CALCULATED LDL IS BASED ON TANYA-RIOS METHOD WHICHINCLUDES ADJUSTABLE TRIGLYCERIDE:VLDL CHOLESTEROL RATIO.THIS FACTOR VARIES BY MEASURED TRIGLYCERIDE AND NON-HDLCHOLESTEROL CONCENTRATIONS WITH INCREASED CALCULATED LDL SEENIN HIGHER TRIGLYCERIDE OR LOWER NON-HDL SPECIMENS. FOR MOREINFORMATION, SEE CLIENT ANNOUNCEMENT AT [email or web address] RISK RATIO LDL/HDL (test code = 2238) 1.95 RATIO <3.55 COMPREHENSIVE METABOLIC [id number] 02:53:05* Test Item Value Reference Range Interpretation Comme nts GLUCOSE (test code = 2217) 107 MG/DL 70-99 H BUN (test code = 2208) 18 MG/DL 8-23 CREATININE (test code = 2214) 1.34 MG/DL 0.80-1.40 eGFR (2020 CKD-EPI) (test code = 83971) 54 ML/MIN/1.73 >60 L The NKF-ASN Taskforc e recommends use of Cystatin C to confirm eGFR inadults at risk for CKD. [facility] offers eGFR with Cystatin C-Creatinineusing the 2020 CKD-EPI eGFR_creat-cystat equation (order code 3057) toincrease the accuracy of estimated GFR. For more information, contactyour senior fund accountant or see announcement [email or web address] CALC BUN/CREAT (test code = 2235) 13 RATIO 6-28 SODIUM (test code = 2231) 139 MEQ/L 133-146 POTASSIUM (test code = 2228) 5.1 MEQ/L 3.5-5.4 CHLORIDE (test code = 2215) 103 MEQ/L 95-107 CARBON DIOXIDE (test code = 2206) 25 MEQ/L 19-31 CALCIUM (test code = 2209) 9.4 MG/DL 8.5-10.5 PROTEIN, TOTAL (test code = 2229) 6.5 G/DL 6.1-8.3 ALBUMIN (test code = 220) 4.1 G/DL 3.5-5.2 CALC GLOBULIN (test code = 2240) 2.4 G/DL 1.9-3.7 CALC A/G RATIO (test code = 2234) 1.7 RATIO 1.0-2.6 BILIRUBIN, TOTAL (test code = 2207) 0.7 MG/DL <=1.2 ALKALINE PHOSPHATASE (test code = 2204) 79 U/L 40-125 AST (test code = 2218) 24 U/L 9-50 ALT (test code = 2219) 16 U/L 5-50 UNLESS OTHERWISE INDICATED, ALL TESTING PERFORMED AT [facility] [address] [place] [address] MANAGER SEARCH: ELLEN GIL M.D. CLIA NUMBER [id number] [place]. [id number] LIPID [id number] 00:00:00* Test Item Value Reference Range Interpretation Comme nts CHOLESTEROL (test code = 2210) 133 MG/DL TRIGLYCERIDES (test code = 2232) 74 MG/DL HDL CHOLESTEROL (test code = 2220) 40 MG/DL CALC LDL CHOL (test code = 2237) 78 MG/DL RISK RATIO LDL/HDL (test cod e = 2238) 1.95 RATIO Sagar BenavidesHEMOGLOBIN [id number] 00:00:00* Test Item Value Reference Range Interpretation Comme nts HEMOGLOBIN A1c (test code = 14724) 5.6 % Sagar BenavidesCOMPREHENSIVE METABOLIC [id number] 00:00:00* Test Item Value Reference Range Interpretation Comme nts GLUCOSE (test code = 2217) 107 MG/DL BUN (test code = 2208) 18 MG/DL CREATININE (test code = 2214) 1.34 MG/DL eGFR (2020 CKD-EPI) (test co de = 06790) 54 ML/MIN/1.73 CALC BUN/CREAT (test code = 2235) 13 RATIO SODIUM (test code = 2231) 139 MEQ/L POTASSIUM (test code = 2228) 5.1 MEQ/L CHLORIDE (test code = 2215) 103 MEQ/L CARBON DIOXIDE (test code = 2206) 25 MEQ/L CALCIUM (test code = 2209) 9.4 MG/DL PROTEIN, TOTAL (test code = 2229) 6.5 G/DL ALBUMIN (test code = 2201) 4.1 G/DL CALC GLOBULIN (test code = 2240) 2.4 G/DL CALC A/G RATIO (test code = 2234) 1.7 RATIO BILIRUBIN, TOTAL (test code = 2207) 0.7 MG/DL ALKALINE PHOSPHATASE (test code = 2204) 79 U/L AST (test code = 2218) 24 U/L ALT (test code = 2219) 16 U/L Sagar BenavidesLIPID [id number] 00:00:00* Test Item Value Reference Range Interpretation Comme nts CHOLESTEROL (test code = 2210) 133 MG/DL TRIGLYCERIDES (test code = 2232) 74 MG/DL HDL CHOLESTEROL (test code = 2220) 40 MG/DL CALC LDL CHOL (test code = 2237) 78 MG/DL RISK RATIO LDL/HDL (test cod e = 2238) 1.95 RATIO Sagar BenavidesHEMOGLOBIN [id number] 00:00:00* Test Item Value Reference Range Interpretation Comme nts HEMOGLOBIN A1c (test code = 85007) 5.6 % Sagar Maldonado KennedyCOMPREHENSIVE METABOLIC [id number] 00:00:00* Test Item Value Reference Range Interpretation Comme nts GLUCOSE (test code = 2217) 107 MG/DL BUN (test code = 2208) 18 MG/DL CREATININE (test code = 2214) 1.34 MG/DL eGFR (2020 CKD-EPI) (test co de = 26572) 54 ML/MIN/1.73 CALC BUN/CREAT (test code = 2235) 13 RATIO SODIUM (test code = 2231) 139 MEQ/L POTASSIUM (test code = 2228) 5.1 MEQ/L CHLORIDE (test code = 2215) 103 MEQ/L CARBON DIOXIDE (test code = 2206) 25 MEQ/L CALCIUM (test code = 2209) 9.4 MG/DL PROTEIN, TOTAL (test code = 2229) 6.5 G/DL ALBUMIN (test code = 2201) 4.1 G/DL CALC GLOBULIN (test code = 2240) 2.4 G/DL CALC A/G RATIO (test code = 2234) 1.7 RATIO BILIRUBIN, TOTAL (test code = 2207) 0.7 MG/DL ALKALINE PHOSPHATASE (test code = 2204) 79 U/L AST (test code = 2218) 24 U/L ALT (test code = 2219) 16 U/L Sagar BenavidesLIPID [id number] 00:00:00* Test Item Value Reference Range Interpretation Comme nts CHOLESTEROL (test code = 2210) 133 MG/DL TRIGLYCERIDES (test code = 2232) 74 MG/DL HDL CHOLESTEROL (test code = 2220) 40 MG/DL CALC LDL CHOL (test code = 2237) 78 MG/DL RISK RATIO LDL/HDL (test cod e = 2238) 1.95 RATIO Sagar BenavidesHEMOGLOBIN [id number] 00:00:00* Test Item Value Reference Range Interpretation Comme nts HEMOGLOBIN A1c (test code = 30499) 5.6 % Sagar BenavidesCOMPREHENSIVE METABOLIC [id number] 00:00:00* Test Item Value Reference Range Interpretation Comme nts GLUCOSE (test code = 2217) 107 MG/DL BUN (test code = 2208) 18 MG/DL CREATININE (test code = 2214) 1.34 MG/DL eGFR (2020 CKD-EPI) (test co de = 21313) 54 ML/MIN/1.73 CALC BUN/CREAT (test code = 2235) 13 RATIO SODIUM (test code = 2231) 139 MEQ/L POTASSIUM (test code = 2228) 5.1 MEQ/L CHLORIDE (test code = 2215) 103 MEQ/L CARBON DIOXIDE (test code = 2206) 25 MEQ/L CALCIUM (test code = 2209) 9.4 MG/DL PROTEIN, TOTAL (test code = 2229) 6.5 G/DL ALBUMIN (test code = 2201) 4.1 G/DL CALC GLOBULIN (test code = 2240) 2.4 G/DL CALC A/G RATIO (test code = 2234) 1.7 RATIO BILIRUBIN, TOTAL (test code = 2207) 0.7 MG/DL ALKALINE PHOSPHATASE (test code = 2204) 79 U/L AST (test code = 2218) 24 U/L ALT (test code = 2219) 16 U/L Sagar BenavidesLIPID [id number] 00:00:00* Test Item Value Reference Range Interpretation Comme nts CHOLESTEROL (test code = 2210) 133 MG/DL TRIGLYCERIDES (test code = 2232) 74 MG/DL HDL CHOLESTEROL (test code = 2220) 40 MG/DL CALC LDL CHOL (test code = 2237) 78 MG/DL RISK RATIO LDL/HDL (test cod e = 2238) 1.95 RATIO Sagar BenavidesHEMOGLOBIN [id number] 00:00:00* Test Item Value Reference Range Interpretation Comme nts HEMOGLOBIN A1c (test code = 78772) 5.6 % Sagar BenavidesCOMPREHENSIVE METABOLIC [id number] 00:00:00* Test Item Value Reference Range Interpretation Comme nts GLUCOSE (test code = 2217) 107 MG/DL BUN (test code = 2208) 18 MG/DL CREATININE (test code = 2214) 1.34 MG/DL eGFR (2020 CKD-EPI) (test co de = 92436) 54 ML/MIN/1.73 CALC BUN/CREAT (test code = 2235) 13 RATIO SODIUM (test code = 2231) 139 MEQ/L POTASSIUM (test code = 2228) 5.1 MEQ/L CHLORIDE (test code = 2215) 103 MEQ/L CARBON DIOXIDE (test code = 2206) 25 MEQ/L CALCIUM (test code = 2209) 9.4 MG/DL PROTEIN, TOTAL (test code = 2229) 6.5 G/DL ALBUMIN (test code = 2201) 4.1 G/DL CALC GLOBULIN (test code = 2240) 2.4 G/DL CALC A/G RATIO (test code = 2234) 1.7 RATIO BILIRUBIN, TOTAL (test code = 2207) 0.7 MG/DL ALKALINE PHOSPHATASE (test code = 2204) 79 U/L AST (test code = 2218) 24 U/L ALT (test code = 2219) 16 U/L Sagar BenavidesLIPID [id number] 00:00:00* Test Item Value Reference Range Interpretation Comme nts CHOLESTEROL (test code = 2210) 133 MG/DL TRIGLYCERIDES (test code = 2232) 74 MG/DL HDL CHOLESTEROL (test code = 2220) 40 MG/DL CALC LDL CHOL (test code = 2237) 78 MG/DL RISK RATIO LDL/HDL (test cod e = 2238) 1.95 RATIO Sagar BenavidesHEMOGLOBIN [id number] 00:00:00* Test Item Value Reference Range Interpretation Comme nts HEMOGLOBIN A1c (test code = 72499) 5.6 % Sagar BenavidesCOMPREHENSIVE METABOLIC [id number] 00:00:00* Test Item Value Reference Range Interpretation Comme nts GLUCOSE (test code = 2217) 107 MG/DL BUN (test code = 2208) 18 MG/DL CREATININE (test code = 2214) 1.34 MG/DL eGFR (2020 CKD-EPI) (test co de = 19118) 54 ML/MIN/1.73 CALC BUN/CREAT (test code = 2235) 13 RATIO SODIUM (test code = 2231) 139 MEQ/L POTASSIUM (test code = 2228) 5.1 MEQ/L CHLORIDE (test code = 2215) 103 MEQ/L CARBON DIOXIDE (test code = 2206) 25 MEQ/L CALCIUM (test code = 2209) 9.4 MG/DL PROTEIN, TOTAL (test code = 2229) 6.5 G/DL ALBUMIN (test code = 2201) 4.1 G/DL CALC GLOBULIN (test code = 2240) 2.4 G/DL CALC A/G RATIO (test code = 2234) 1.7 RATIO BILIRUBIN, TOTAL (test code = 2207) 0.7 MG/DL ALKALINE PHOSPHATASE (test code = 2204) 79 U/L AST (test code = 2218) 24 U/L ALT (test code = 2219) 16 U/L Sagar BenavidesLIPID [id number] 00:00:00* Test Item Value Reference Range Interpretation Comme nts CHOLESTEROL (test code = 2210) 133 MG/DL TRIGLYCERIDES (test code = 2232) 74 MG/DL HDL CHOLESTEROL (test code = 2220) 40 MG/DL CALC LDL CHOL (test code = 2237) 78 MG/DL RISK RATIO LDL/HDL (test cod e = 2238) 1.95 RATIO Sagar BenavidesHEMOGLOBIN [id number] 00:00:00* Test Item Value Reference Range Interpretation Comme nts HEMOGLOBIN A1c (test code = 74637) 5.6 % Sagar BenavidesCOMPREHENSIVE METABOLIC [id number] 00:00:00* Test Item Value Reference Range Interpretation Comme nts GLUCOSE (test code = 2217) 107 MG/DL BUN (test code = 2208) 18 MG/DL CREATININE (test code = 2214) 1.34 MG/DL eGFR (2020 CKD-EPI) (test co de = 93950) 54 ML/MIN/1.73 CALC BUN/CREAT (test code = 2235) 13 RATIO SODIUM (test code = 2231) 139 MEQ/L POTASSIUM (test code = 2228) 5.1 MEQ/L CHLORIDE (test code = 2215) 103 MEQ/L CARBON DIOXIDE (test code = 2206) 25 MEQ/L CALCIUM (test code = 2209) 9.4 MG/DL PROTEIN, TOTAL (test code = 2229) 6.5 G/DL ALBUMIN (test code = 2201) 4.1 G/DL CALC GLOBULIN (test code = 2240) 2.4 G/DL CALC A/G RATIO (test code = 2234) 1.7 RATIO BILIRUBIN, TOTAL (test code = 2207) 0.7 MG/DL ALKALINE PHOSPHATASE (test code = 2204) 79 U/L AST (test code = 2218) 24 U/L ALT (test code = 2219) 16 U/L Sagar BenavidesLIPID [id number] 04:50:33* Test Item Value Reference Range Interpretation Comme nts CHOLESTEROL (test code = 2210) 129 MG/DL <200 TRIGLYCERIDES (test code = 2232) 86 MG/DL <150 HDL CHOLESTEROL (test code = 2220) 37 MG/DL >39 L CALC LDL CHOL (test code = 2237) 75 MG/DL <100 NOTE: CALCULATED LDL IS BASED ON TANYA-RIOS METHOD WHICHINCLUDES ADJUSTABLE TRIGLYCERIDE:VLDL CHOLESTEROL RATIO.THIS FACTOR VARIES BY MEASURED TRIGLYCERIDE AND NON-HDLCHOLESTEROL CONCENTRATIONS WITH INCREASED CALCULATED LDL SEENIN HIGHER TRIGLYCERIDE OR LOWER NON-HDL SPECIMENS. FOR MOREINFORMATION, SEE CLIENT ANNOUNCEMENT AT [email or web address] RISK RATIO LDL/HDL (test code = 2237) 2.03 RATIO <3.55 COMPREHENSIVE METABOLIC [id number] 04:50:33* Test Item Value Reference Range Interpretation Comme nts GLUCOSE (test code = 2216) 114 MG/DL 70-99 H BUN (test code = 2207) 16 MG/DL 8-23 CREATININE (test code = 2213) 1.16 MG/DL 0.80-1.40 eGFR (2020 CKD-EPI) (test code = ) 64 ML/MIN/1.73 >60 CALC BUN/CREAT (test code = 2234) 14 RATIO 6-28 SODIUM (test code = 2230) 142 MEQ/L 133-146 POTASSIUM (test code = 2227) 5.0 MEQ/L 3.5-5.4 CHLORIDE (test code = 2214) 105 MEQ/L 95-107 CARBON DIOXIDE (test code = 2205) 26 MEQ/L 19-31 CALCIUM (test code = 2208) 9.6 MG/DL 8.5-10.5 PROTEIN, TOTAL (test code = 2228) 6.6 G/DL 6.1-8.3 ALBUMIN (test code = 2200) 3.8 G/DL 3.5-5.2 CALC GLOBULIN (test code = 2240) 2.8 G/DL 1.9-3.7 CALC A/G RATIO (test code = 2233) 1.4 RATIO 1.0-2.6 BILIRUBIN, TOTAL (test code = 2206) 0.9 MG/DL See_Comment [Automated me ssage] The system which generated this result transmitted reference range: <=1.2. The reference range was not used to interpret this result as normal/abnormal. ALKALINE PHOSPHATASE (test code = 2203) 69 U/L 40-125 AST (test code = 8) 20 U/L 9-50 ALT (test code = 2219) 15 U/L 5-50 UNLESS OTHERWISE INDICATED, ALL TESTING PERFORMED [facility]CL[facility] [employer] [employer] [address] [place] [address] MANAGER SEARCH: MANUEL PARK M.D. [place] NUMBER [id number] [place]. [id number] HEMOGLOBIN [id number] 03:30:50* Test Item Value Reference Range Interpretation Comme nts HEMOGLOBIN A1c (test code = 16460) 5.6 % 4.2-5.6 HEMOGLOBIN A1c [ADDED]2022-09-02 00:00:00* Test Item Value Reference Range Interpretation Comme nts HEMOGLOBIN A1c (test code = 59859) 5.6 % Sagar BenavidesLIPID PANEL [ADDED]2022-09-02 00:00:00* Test Item Value Reference Range Interpretation Comme nts CHOLESTEROL (test code = 2210) 129 MG/DL TRIGLYCERIDES (test code = 2232) 86 MG/DL HDL CHOLESTEROL (test code = 2220) 37 MG/DL CALC LDL CHOL (test code = 2237) 75 MG/DL RISK RATIO LDL/HDL (test cod e = 2238) 2.03 RATIO Sagar BenavidesCOMPREHENSIVE METABOLIC PANEL [ADDED]2022-09-02 00:00:00* Test Item Value Reference Range Interpretation Comme nts GLUCOSE (test code = 2217) 114 MG/DL BUN (test code = 2208) 16 MG/DL CREATININE (test code = 2214) 1.16 MG/DL eGFR (2020 CKD-EPI) (test co de = 93703) 64 ML/MIN/1.73 CALC BUN/CREAT (test code = 2235) 14 RATIO SODIUM (test code = 2231) 142 MEQ/L POTASSIUM (test code = 2228) 5.0 MEQ/L CHLORIDE (test code = 2215) 105 MEQ/L CARBON DIOXIDE (test code = 2206) 26 MEQ/L CALCIUM (test code = 2209) 9.6 MG/DL PROTEIN, TOTAL (test code = 2229) 6.6 G/DL ALBUMIN (test code = 2201) 3.8 G/DL CALC GLOBULIN (test code = 2240) 2.8 G/DL CALC A/G RATIO (test code = 2234) 1.4 RATIO BILIRUBIN, TOTAL (test code = 2207) 0.9 MG/DL ALKALINE PHOSPHATASE (test code = 2204) 69 U/L AST (test code = 2218) 20 U/L ALT (test code = 2219) 15 U/L Sagar F AustinHEMOGLOBIN A1c [ADDED]2022-09-02 00:00:00* Test Item Value Reference Range Interpretation Comme nts HEMOGLOBIN A1c (test code = 82252) 5.6 % Sagar Maldonado AustinLIPID PANEL [ADDED]2022-09-02 00:00:00* Test Item Value Reference Range Interpretation Comme nts CHOLESTEROL (test code = 2210) 129 MG/DL TRIGLYCERIDES (test code = 2232) 86 MG/DL HDL CHOLESTEROL (test code = 2220) 37 MG/DL CALC LDL CHOL (test code = 2237) 75 MG/DL RISK RATIO LDL/HDL (test cod e = 2238) 2.03 RATIO Sagar BenavidesCOMPREHENSIVE METABOLIC PANEL [ADDED]2022-09-02 00:00:00* Test Item Value Reference Range Interpretation Comme nts GLUCOSE (test code = 2217) 114 MG/DL BUN (test code = 2208) 16 MG/DL CREATININE (test code = 2214) 1.16 MG/DL eGFR (2020 CKD-EPI) (test co de = 46604) 64 ML/MIN/1.73 CALC BUN/CREAT (test code = 2235) 14 RATIO SODIUM (test code = 2231) 142 MEQ/L POTASSIUM (test code = 2228) 5.0 MEQ/L CHLORIDE (test code = 2215) 105 MEQ/L CARBON DIOXIDE (test code = 2206) 26 MEQ/L CALCIUM (test code = 2209) 9.6 MG/DL PROTEIN, TOTAL (test code = 2229) 6.6 G/DL ALBUMIN (test code = 2201) 3.8 G/DL CALC GLOBULIN (test code = 2240) 2.8 G/DL CALC A/G RATIO (test code = 2234) 1.4 RATIO BILIRUBIN, TOTAL (test code = 2207) 0.9 MG/DL ALKALINE PHOSPHATASE (test code = 2204) 69 U/L AST (test code = 2218) 20 U/L ALT (test code = 2219) 15 U/L Sagar BenavidesHEMOGLOBIN A1c [ADDED]2022-09-02 00:00:00* Test Item Value Reference Range Interpretation Comme nts HEMOGLOBIN A1c (test code = 24622) 5.6 % Sagar Maldonado AustinLIPID PANEL [ADDED]2022-09-02 00:00:00* Test Item Value Reference Range Interpretation Comme nts CHOLESTEROL (test code = 2210) 129 MG/DL TRIGLYCERIDES (test code = 2232) 86 MG/DL HDL CHOLESTEROL (test code = 2220) 37 MG/DL CALC LDL CHOL (test code = 2237) 75 MG/DL RISK RATIO LDL/HDL (test cod e = 2238) 2.03 RATIO Sagar BenavidesCOMPREHENSIVE METABOLIC PANEL [ADDED]2022-09-02 00:00:00* Test Item Value Reference Range Interpretation Comme nts GLUCOSE (test code = 2217) 114 MG/DL BUN (test code = 2208) 16 MG/DL CREATININE (test code = 2214) 1.16 MG/DL eGFR (2020 CKD-EPI) (test co de = 11225) 64 ML/MIN/1.73 CALC BUN/CREAT (test code = 2235) 14 RATIO SODIUM (test code = 2231) 142 MEQ/L POTASSIUM (test code = 2228) 5.0 MEQ/L CHLORIDE (test code = 2215) 105 MEQ/L CARBON DIOXIDE (test code = 2206) 26 MEQ/L CALCIUM (test code = 2209) 9.6 MG/DL PROTEIN, TOTAL (test code = 2229) 6.6 G/DL ALBUMIN (test code = 2201) 3.8 G/DL CALC GLOBULIN (test code = 2240) 2.8 G/DL CALC A/G RATIO (test code = 2234) 1.4 RATIO BILIRUBIN, TOTAL (test code = 2207) 0.9 MG/DL ALKALINE PHOSPHATASE (test code = 2204) 69 U/L AST (test code = 2218) 20 U/L ALT (test code = 2219) 15 U/L Sagar BenavidesHEMOGLOBIN A1c [ADDED]2022-09-02 00:00:00* Test Item Value Reference Range Interpretation Comme nts HEMOGLOBIN A1c (test code = 18521) 5.6 % Sagar BenavidesLIPID PANEL [ADDED]2022-09-02 00:00:00* Test Item Value Reference Range Interpretation Comme nts CHOLESTEROL (test code = 2210) 129 MG/DL TRIGLYCERIDES (test code = 2232) 86 MG/DL HDL CHOLESTEROL (test code = 2220) 37 MG/DL CALC LDL CHOL (test code = 2237) 75 MG/DL RISK RATIO LDL/HDL (test cod e = 2238) 2.03 RATIO Sagar F AustinCOMPREHENSIVE METABOLIC PANEL [ADDED]2022-09-02 00:00:00* Test Item Value Reference Range Interpretation Comme nts GLUCOSE (test code = 2217) 114 MG/DL BUN (test code = 2208) 16 MG/DL CREATININE (test code = 2214) 1.16 MG/DL eGFR (2020 CKD-EPI) (test co de = 54345) 64 ML/MIN/1.73 CALC BUN/CREAT (test code = 2235) 14 RATIO SODIUM (test code = 2231) 142 MEQ/L POTASSIUM (test code = 2228) 5.0 MEQ/L CHLORIDE (test code = 2215) 105 MEQ/L CARBON DIOXIDE (test code = 2206) 26 MEQ/L CALCIUM (test code = 2209) 9.6 MG/DL PROTEIN, TOTAL (test code = 2229) 6.6 G/DL ALBUMIN (test code = 2201) 3.8 G/DL CALC GLOBULIN (test code = 2240) 2.8 G/DL CALC A/G RATIO (test code = 2234) 1.4 RATIO BILIRUBIN, TOTAL (test code = 2207) 0.9 MG/DL ALKALINE PHOSPHATASE (test code = 2204) 69 U/L AST (test code = 2218) 20 U/L ALT (test code = 2219) 15 U/L Sagar BenavidesHEMOGLOBIN A1c [ADDED]2022-09-02 00:00:00* Test Item Value Reference Range Interpretation Comme nts HEMOGLOBIN A1c (test code = 54568) 5.6 % Sagar Maldonado AustinLIPID PANEL [ADDED]2022-09-02 00:00:00* Test Item Value Reference Range Interpretation Comme nts CHOLESTEROL (test code = 2210) 129 MG/DL TRIGLYCERIDES (test code = 2232) 86 MG/DL HDL CHOLESTEROL (test code = 2220) 37 MG/DL CALC LDL CHOL (test code = 2237) 75 MG/DL RISK RATIO LDL/HDL (test cod e = 2238) 2.03 RATIO Sagar BenavidesCOMPREHENSIVE METABOLIC PANEL [ADDED]2022-09-02 00:00:00* Test Item Value Reference Range Interpretation Comme nts GLUCOSE (test code = 2217) 114 MG/DL BUN (test code = 2208) 16 MG/DL CREATININE (test code = 2214) 1.16 MG/DL eGFR (2020 CKD-EPI) (test co de = 10393) 64 ML/MIN/1.73 CALC BUN/CREAT (test code = 2235) 14 RATIO SODIUM (test code = 2231) 142 MEQ/L POTASSIUM (test code = 2228) 5.0 MEQ/L CHLORIDE (test code = 2215) 105 MEQ/L CARBON DIOXIDE (test code = 2206) 26 MEQ/L CALCIUM (test code = 2209) 9.6 MG/DL PROTEIN, TOTAL (test code = 2229) 6.6 G/DL ALBUMIN (test code = 2201) 3.8 G/DL CALC GLOBULIN (test code = 2240) 2.8 G/DL CALC A/G RATIO (test code = 2234) 1.4 RATIO BILIRUBIN, TOTAL (test code = 2207) 0.9 MG/DL ALKALINE PHOSPHATASE (test code = 2204) 69 U/L AST (test code = 2218) 20 U/L ALT (test code = 2219) 15 U/L Sagar BenavidesHEMOGLOBIN A1c [ADDED]2022-09-02 00:00:00* Test Item Value Reference Range Interpretation Comme nts HEMOGLOBIN A1c (test code = 10167) 5.6 % Sagar BenavidesLIPID PANEL [ADDED]2022-09-02 00:00:00* Test Item Value Reference Range Interpretation Comme nts CHOLESTEROL (test code = 2210) 129 MG/DL TRIGLYCERIDES (test code = 2232) 86 MG/DL HDL CHOLESTEROL (test code = 2220) 37 MG/DL CALC LDL CHOL (test code = 2237) 75 MG/DL RISK RATIO LDL/HDL (test cod e = 2238) 2.03 RATIO Sagar BenavidesCOMPREHENSIVE METABOLIC PANEL [ADDED]2022-09-02 00:00:00* Test Item Value Reference Range Interpretation Comme nts GLUCOSE (test code = 2217) 114 MG/DL BUN (test code = 2208) 16 MG/DL CREATININE (test code = 2214) 1.16 MG/DL eGFR (2020 CKD-EPI) (test co de = 39991) 64 ML/MIN/1.73 CALC BUN/CREAT (test code = 2235) 14 RATIO SODIUM (test code = 2231) 142 MEQ/L POTASSIUM (test code = 2228) 5.0 MEQ/L CHLORIDE (test code = 2215) 105 MEQ/L CARBON DIOXIDE (test code = 2206) 26 MEQ/L CALCIUM (test code = 2209) 9.6 MG/DL PROTEIN, TOTAL (test code = 2229) 6.6 G/DL ALBUMIN (test code = 2201) 3.8 G/DL CALC GLOBULIN (test code = 2240) 2.8 G/DL CALC A/G RATIO (test code = 2234) 1.4 RATIO BILIRUBIN, TOTAL (test code = 2207) 0.9 MG/DL ALKALINE PHOSPHATASE (test code = 2204) 69 U/L AST (test code = 2218) 20 U/L ALT (test code = 2219) 15 U/L Sagar BenavidesHEMOGLOBIN [id number] 03:58:48* Test Item Value Reference Range Interpretation Comme nts HEMOGLOBIN A1c (test code = 08179) 5.6 % 4.2-5.6 UNLESS OTHERWISE INDICATED, ALL TESTING PERFORMED [facility] [employer] [employer] [address] [place] [address] MANAGER SEARCH: MANUEL PARK M.D. CLIA NUMBER [id number] [facility] [place]. [id number] HEMOGLOBIN A1c [ADDED]2022-01-09 00:00:00* Test Item Value Reference Range Interpretation Comme nts HEMOGLOBIN A1c (test code = 82728) 5.6 % HEMOGLOBIN A1c [ADDED]2022-01-09 00:00:00* Test Item Value Reference Range Interpretation Comme nts HEMOGLOBIN A1c (test code = 40524) 5.6 % Sagar Maldonaod AustinHEMOGLOBIN A1c [ADDED]2022-01-09 00:00:00* Test Item Value Reference Range Interpretation Comme nts HEMOGLOBIN A1c (test code = 71735) 5.6 % HEMOGLOBIN A1c [ADDED]2022-01-09 00:00:00* Test Item Value Reference Range Interpretation Comme nts HEMOGLOBIN A1c (test code = 24937) 5.6 % Sagar F AustinHEMOGLOBIN A1c [ADDED]2022-01-09 00:00:00* Test Item Value Reference Range Interpretation Comme nts HEMOGLOBIN A1c (test code = 58356) 5.6 % Sagar Maldonado AustinHEMOGLOBIN A1c [ADDED]2022-01-09 00:00:00* Test Item Value Reference Range Interpretation Comme nts HEMOGLOBIN A1c (test code = 95172) 5.6 % Sagar BenavidesHEMOGLOBIN A1c [ADDED]2022-01-09 00:00:00* Test Item Value Reference Range Interpretation Comme riley HEMOGLOBIN A1c (test code = 94533) 5.6 % Sagar BenavidesHEMOGLOBIN A1c [ADDED]2022-01-09 00:00:00* Test Item Value Reference Range Interpretation Comme riley HEMOGLOBIN A1c (test code = 55639) 5.6 % Sagar Maldonado AustinLIPID [id number] 04:34:34* Test Item Value Reference Range Interpretation Comme nts CHOLESTEROL (test code = 2210) 141 MG/DL <200 TRIGLYCERIDES (test code = 2232) 85 MG/DL <150 HDL CHOLESTEROL (test code = 2220) 44 MG/DL >39 CALC LDL CHOL (test code = 2237) 80 MG/DL <100 NOTE: CALCULATED LDL IS BASED ON TANYA-RIOS METHOD WHICHINCLUDES ADJUSTABLE TRIGLYCERIDE:VLDL CHOLESTEROL RATIO.THIS FACTOR VARIES BY MEASURED TRIGLYCERIDE AND NON-HDLCHOLESTEROL CONCENTRATIONS WITH INCREASED CALCULATED LDL SEENIN HIGHER TRIGLYCERIDE OR LOWER NON-HDL SPECIMENS. FOR MOREINFORMATION, SEE CLIENT ANNOUNCEMENT AT [email or web address] RISK RATIO LDL/HDL (test code = 2238) 1.82 RATIO <3.55 COMPREHENSIVE METABOLIC [id number] 04:34:34* Test Item Value Reference Range Interpretation Comme nts GLUCOSE (test code = 2217) 105 MG/DL 70-99 H BUN (test code = 2207) 16 MG/DL 8-23 CREATININE (test code = 2214) 1.05 MG/DL 0.80-1.40 eGFR (2020 CKD-EPI) (test code = 66456) 72 ML/MIN/1.73 >60 CALC BUN/CREAT (test code = 2235) 15 RATIO 6-28 SODIUM (test code = 223) 138 MEQ/L 133-146 POTASSIUM (test code = 2228) 5.0 MEQ/L 3.5-5.4 CHLORIDE (test code = 2215) 103 MEQ/L 95-107 CARBON DIOXIDE (test code = 2206) 23 MEQ/L 19-31 CALCIUM (test code = 2208) 9.5 MG/DL 8.5-10.5 PROTEIN, TOTAL (test code = 2229) 6.9 G/DL 6.1-8.3 ALBUMIN (test code = 2201) 4.1 G/DL 3.5-5.2 CALC GLOBULIN (test code = 2240) 2.8 G/DL 1.9-3.7 CALC A/G RATIO (test code = 2234) 1.5 RATIO 1.0-2.6 BILIRUBIN, TOTAL (test code = 2207) 0.7 MG/DL See_Comment [Automated me ssage] The system which generated this result transmitted reference range: <=1.2. The reference range was not used to interpret this result as normal/abnormal. ALKALINE PHOSPHATASE (test code = 4) 75 U/L 40-125 AST (test code = 2218) 19 U/L 9-50 ALT (test code = 2219) 15 U/L 5-50 HEMOGLOBIN [id number] 04:12:16* Test Item Value Reference Range Interpretation Comme nts HEMOGLOBIN A1c (test code = 54234) 5.6 % 4.2-5.6 UNLESS OTHERWISE INDICATED, ALL TESTING PERFORMED [facility] [address] [place] [address] MANAGER SEARCH: MANUEL PARK M.D. CLIA NUMBER [id number] [place]. [id number] LIPID [id number] 00:00:00* Test Item Value Reference Range Interpretation Comme nts CHOLESTEROL (test code = 2210) 141 MG/DL TRIGLYCERIDES (test code = 2232) 85 MG/DL HDL CHOLESTEROL (test code = 2220) 44 MG/DL CALC LDL CHOL (test code = 2237) 80 MG/DL RISK RATIO LDL/HDL (test cod e = 2238) 1.82 RATIO COMPREHENSIVE METABOLIC [id number] 00:00:00* Test Item Value Reference Range Interpretation Comme nts GLUCOSE (test code = 2217) 105 MG/DL BUN (test code = 2208) 16 MG/DL CREATININE (test code = 2214) 1.05 MG/DL eGFR (2020 CKD-EPI) (test co de = 49746) 72 ML/MIN/1.73 CALC BUN/CREAT (test code = 2235) 15 RATIO SODIUM (test code = 2231) 138 MEQ/L POTASSIUM (test code = 2228) 5.0 MEQ/L CHLORIDE (test code = 2215) 103 MEQ/L CARBON DIOXIDE (test code = 2206) 23 MEQ/L CALCIUM (test code = 2209) 9.5 MG/DL PROTEIN, TOTAL (test code = 2229) 6.9 G/DL ALBUMIN (test code = 2201) 4.1 G/DL CALC GLOBULIN (test code = 2240) 2.8 G/DL CALC A/G RATIO (test code = 2234) 1.5 RATIO BILIRUBIN, TOTAL (test code = 2207) 0.7 MG/DL ALKALINE PHOSPHATASE (test code = 2204) 75 U/L AST (test code = 2218) 19 U/L ALT (test code = 2219) 15 U/L HEMOGLOBIN [id number] 00:00:00* Test Item Value Reference Range Interpretation Comme nts HEMOGLOBIN A1c (test code = 08949) 5.6 % LIPID [id number] 00:00:00* Test Item Value Reference Range Interpretation Comme nts CHOLESTEROL (test code = 2210) 141 MG/DL TRIGLYCERIDES (test code = 2232) 85 MG/DL HDL CHOLESTEROL (test code = 2220) 44 MG/DL CALC LDL CHOL (test code = 2237) 80 MG/DL RISK RATIO LDL/HDL (test cod e = 2238) 1.82 RATIO Sagar F AustinLIPID [id number] 00:00:00* Test Item Value Reference Range Interpretation Comme nts CHOLESTEROL (test code = 2210) 141 MG/DL TRIGLYCERIDES (test code = 2232) 85 MG/DL HDL CHOLESTEROL (test code = 2220) 44 MG/DL CALC LDL CHOL (test code = 2237) 80 MG/DL RISK RATIO LDL/HDL (test cod e = 2238) 1.82 RATIO COMPREHENSIVE METABOLIC [id number] 00:00:00* Test Item Value Reference Range Interpretation Comme nts GLUCOSE (test code = 2217) 105 MG/DL BUN (test code = 2208) 16 MG/DL CREATININE (test code = 2214) 1.05 MG/DL eGFR (2020 CKD-EPI) (test co de = 70605) 72 ML/MIN/1.73 CALC BUN/CREAT (test code = 2235) 15 RATIO SODIUM (test code = 2231) 138 MEQ/L POTASSIUM (test code = 2228) 5.0 MEQ/L CHLORIDE (test code = 2215) 103 MEQ/L CARBON DIOXIDE (test code = 2206) 23 MEQ/L CALCIUM (test code = 2209) 9.5 MG/DL PROTEIN, TOTAL (test code = 2229) 6.9 G/DL ALBUMIN (test code = 2201) 4.1 G/DL CALC GLOBULIN (test code = 2240) 2.8 G/DL CALC A/G RATIO (test code = 2234) 1.5 RATIO BILIRUBIN, TOTAL (test code = 2207) 0.7 MG/DL ALKALINE PHOSPHATASE (test code = 2204) 75 U/L AST (test code = 2218) 19 U/L ALT (test code = 2219) 15 U/L Sagar Maldonado AustinCOMPREHENSIVE METABOLIC [id number] 00:00:00* Test Item Value Reference Range Interpretation Comme nts GLUCOSE (test code = 2217) 105 MG/DL BUN (test code = 2208) 16 MG/DL CREATININE (test code = 2214) 1.05 MG/DL eGFR (2020 CKD-EPI) (test co de = 24279) 72 ML/MIN/1.73 CALC BUN/CREAT (test code = 2235) 15 RATIO SODIUM (test code = 2231) 138 MEQ/L POTASSIUM (test code = 2228) 5.0 MEQ/L CHLORIDE (test code = 2215) 103 MEQ/L CARBON DIOXIDE (test code = 2206) 23 MEQ/L CALCIUM (test code = 2209) 9.5 MG/DL PROTEIN, TOTAL (test code = 2229) 6.9 G/DL ALBUMIN (test code = 2201) 4.1 G/DL CALC GLOBULIN (test code = 2240) 2.8 G/DL CALC A/G RATIO (test code = 2234) 1.5 RATIO BILIRUBIN, TOTAL (test code = 2207) 0.7 MG/DL ALKALINE PHOSPHATASE (test code = 2204) 75 U/L AST (test code = 2218) 19 U/L ALT (test code = 2219) 15 U/L HEMOGLOBIN [id number] 00:00:00* Test Item Value Reference Range Interpretation Comme nts HEMOGLOBIN A1c (test code = 12497) 5.6 % HEMOGLOBIN [id number] 00:00:00* Test Item Value Reference Range Interpretation Comme nts HEMOGLOBIN A1c (test code = 41492) 5.6 % Sagar BenavidesLIPID [id number] 00:00:00* Test Item Value Reference Range Interpretation Comme nts CHOLESTEROL (test code = 2210) 141 MG/DL TRIGLYCERIDES (test code = 2232) 85 MG/DL HDL CHOLESTEROL (test code = 2220) 44 MG/DL CALC LDL CHOL (test code = 2237) 80 MG/DL RISK RATIO LDL/HDL (test cod e = 2238) 1.82 RATIO Sagar BeanvidesCOMPREHENSIVE METABOLIC [id number] 00:00:00* Test Item Value Reference Range Interpretation Comme nts GLUCOSE (test code = 2217) 105 MG/DL BUN (test code = 2208) 16 MG/DL CREATININE (test code = 2214) 1.05 MG/DL eGFR (2020 CKD-EPI) (test co de = 99576) 72 ML/MIN/1.73 CALC BUN/CREAT (test code = 2235) 15 RATIO SODIUM (test code = 2231) 138 MEQ/L POTASSIUM (test code = 2228) 5.0 MEQ/L CHLORIDE (test code = 2215) 103 MEQ/L CARBON DIOXIDE (test code = 2206) 23 MEQ/L CALCIUM (test code = 2209) 9.5 MG/DL PROTEIN, TOTAL (test code = 2229) 6.9 G/DL ALBUMIN (test code = 2201) 4.1 G/DL CALC GLOBULIN (test code = 2240) 2.8 G/DL CALC A/G RATIO (test code = 2234) 1.5 RATIO BILIRUBIN, TOTAL (test code = 2207) 0.7 MG/DL ALKALINE PHOSPHATASE (test code = 2204) 75 U/L AST (test code = 2218) 19 U/L ALT (test code = 2219) 15 U/L Sagar BenavidesHEMOGLOBIN [id number] 00:00:00* Test Item Value Reference Range Interpretation Comme nts HEMOGLOBIN A1c (test code = 54496) 5.6 % Sagar BenavidesLIPID [id number] 00:00:00* Test Item Value Reference Range Interpretation Comme nts CHOLESTEROL (test code = 2210) 141 MG/DL TRIGLYCERIDES (test code = 2232) 85 MG/DL HDL CHOLESTEROL (test code = 2220) 44 MG/DL CALC LDL CHOL (test code = 2237) 80 MG/DL RISK RATIO LDL/HDL (test cod e = 2238) 1.82 RATIO Sagar Maldonado AustinCOMPREHENSIVE METABOLIC [id number] 00:00:00* Test Item Value Reference Range Interpretation Comme nts GLUCOSE (test code = 2217) 105 MG/DL BUN (test code = 2208) 16 MG/DL CREATININE (test code = 2214) 1.05 MG/DL eGFR (2020 CKD-EPI) (test co de = 38085) 72 ML/MIN/1.73 CALC BUN/CREAT (test code = 2235) 15 RATIO SODIUM (test code = 2231) 138 MEQ/L POTASSIUM (test code = 2228) 5.0 MEQ/L CHLORIDE (test code = 2215) 103 MEQ/L CARBON DIOXIDE (test code = 2206) 23 MEQ/L CALCIUM (test code = 2209) 9.5 MG/DL PROTEIN, TOTAL (test code = 2229) 6.9 G/DL ALBUMIN (test code = 2201) 4.1 G/DL CALC GLOBULIN (test code = 2240) 2.8 G/DL CALC A/G RATIO (test code = 2234) 1.5 RATIO BILIRUBIN, TOTAL (test code = 2207) 0.7 MG/DL ALKALINE PHOSPHATASE (test code = 2204) 75 U/L AST (test code = 2218) 19 U/L ALT (test code = 2219) 15 U/L Sagar BenavidesHEMOGLOBIN [id number] 00:00:00* Test Item Value Reference Range Interpretation Comme nts HEMOGLOBIN A1c (test code = 43209) 5.6 % Sagar Maldonado AustinLIPID [id number] 00:00:00* Test Item Value Reference Range Interpretation Comme nts CHOLESTEROL (test code = 2210) 141 MG/DL TRIGLYCERIDES (test code = 2232) 85 MG/DL HDL CHOLESTEROL (test code = 2220) 44 MG/DL CALC LDL CHOL (test code = 2237) 80 MG/DL RISK RATIO LDL/HDL (test cod e = 2238) 1.82 RATIO Sagar BenavidesCOMPREHENSIVE METABOLIC [id number] 00:00:00* Test Item Value Reference Range Interpretation Comme nts GLUCOSE (test code = 2217) 105 MG/DL BUN (test code = 2208) 16 MG/DL CREATININE (test code = 2214) 1.05 MG/DL eGFR (2020 CKD-EPI) (test co de = 30285) 72 ML/MIN/1.73 CALC BUN/CREAT (test code = 2235) 15 RATIO SODIUM (test code = 2231) 138 MEQ/L POTASSIUM (test code = 2228) 5.0 MEQ/L CHLORIDE (test code = 2215) 103 MEQ/L CARBON DIOXIDE (test code = 2206) 23 MEQ/L CALCIUM (test code = 2209) 9.5 MG/DL PROTEIN, TOTAL (test code = 2229) 6.9 G/DL ALBUMIN (test code = 2201) 4.1 G/DL CALC GLOBULIN (test code = 2240) 2.8 G/DL CALC A/G RATIO (test code = 2234) 1.5 RATIO BILIRUBIN, TOTAL (test code = 2207) 0.7 MG/DL ALKALINE PHOSPHATASE (test code = 2204) 75 U/L AST (test code = 2218) 19 U/L ALT (test code = 2219) 15 U/L Sagar BenavidesHEMOGLOBIN [id number] 00:00:00* Test Item Value Reference Range Interpretation Comme nts HEMOGLOBIN A1c (test code = 68679) 5.6 % Sagar BenavidesLIPID [id number] 00:00:00* Test Item Value Reference Range Interpretation Comme nts CHOLESTEROL (test code = 2210) 141 MG/DL TRIGLYCERIDES (test code = 2232) 85 MG/DL HDL CHOLESTEROL (test code = 2220) 44 MG/DL CALC LDL CHOL (test code = 2237) 80 MG/DL RISK RATIO LDL/HDL (test cod e = 2238) 1.82 RATIO Sagar BenavidesCOMPREHENSIVE METABOLIC [id number] 00:00:00* Test Item Value Reference Range Interpretation Comme nts GLUCOSE (test code = 2217) 105 MG/DL BUN (test code = 2208) 16 MG/DL CREATININE (test code = 2214) 1.05 MG/DL eGFR (2020 CKD-EPI) (test co de = 85294) 72 ML/MIN/1.73 CALC BUN/CREAT (test code = 2235) 15 RATIO SODIUM (test code = 2231) 138 MEQ/L POTASSIUM (test code = 2228) 5.0 MEQ/L CHLORIDE (test code = 2215) 103 MEQ/L CARBON DIOXIDE (test code = 2206) 23 MEQ/L CALCIUM (test code = 2209) 9.5 MG/DL PROTEIN, TOTAL (test code = 2229) 6.9 G/DL ALBUMIN (test code = 2201) 4.1 G/DL CALC GLOBULIN (test code = 2240) 2.8 G/DL CALC A/G RATIO (test code = 2234) 1.5 RATIO BILIRUBIN, TOTAL (test code = 2207) 0.7 MG/DL ALKALINE PHOSPHATASE (test code = 2204) 75 U/L AST (test code = 2218) 19 U/L ALT (test code = 2219) 15 U/L Sagar BenavidesHEMOGLOBIN [id number] 00:00:00* Test Item Value Reference Range Interpretation Comme nts HEMOGLOBIN A1c (test code = 91163) 5.6 % Sagar BenavidesLIPID [id number] 00:00:00* Test Item Value Reference Range Interpretation Comme nts CHOLESTEROL (test code = 2210) 141 MG/DL TRIGLYCERIDES (test code = 2232) 85 MG/DL HDL CHOLESTEROL (test code = 2220) 44 MG/DL CALC LDL CHOL (test code = 2237) 80 MG/DL RISK RATIO LDL/HDL (test cod e = 2238) 1.82 RATIO Sagar BenavidesCOMPREHENSIVE METABOLIC [id number] 00:00:00* Test Item Value Reference Range Interpretation Comme nts GLUCOSE (test code = 2217) 105 MG/DL BUN (test code = 2208) 16 MG/DL CREATININE (test code = 2214) 1.05 MG/DL eGFR (2020 CKD-EPI) (test co de = 85626) 72 ML/MIN/1.73 CALC BUN/CREAT (test code = 2235) 15 RATIO SODIUM (test code = 2231) 138 MEQ/L POTASSIUM (test code = 2228) 5.0 MEQ/L CHLORIDE (test code = 2215) 103 MEQ/L CARBON DIOXIDE (test code = 2206) 23 MEQ/L CALCIUM (test code = 2209) 9.5 MG/DL PROTEIN, TOTAL (test code = 2229) 6.9 G/DL ALBUMIN (test code = 2201) 4.1 G/DL CALC GLOBULIN (test code = 2240) 2.8 G/DL CALC A/G RATIO (test code = 2234) 1.5 RATIO BILIRUBIN, TOTAL (test code = 2207) 0.7 MG/DL ALKALINE PHOSPHATASE (test code = 2204) 75 U/L AST (test code = 2218) 19 U/L ALT (test code = 2219) 15 U/L Sagar Maldonado AustinHEMOGLOBIN [id number] 00:00:00* Test Item Value Reference Range Interpretation Comme nts HEMOGLOBIN A1c (test code = 75527) 5.6 % Sagar Maldonado AustinHEMOGLOBIN [id number] 00:00:00* Test Item Value Reference Range Interpretation Comme nts HEMOGLOBIN A1c (test code = 29694) 5.6 % LIPID [id number] 00:00:00* Test Item Value Reference Range Interpretation Comme nts CHOLESTEROL (test code = 2210) 137 MG/DL TRIGLYCERIDES (test code = 2232) 70 MG/DL HDL CHOLESTEROL (test code = 0) 40 MG/DL CALC LDL CHOL (test code = 2237) 82 MG/DL RISK RATIO LDL/HDL (test cod e = 2238) 2.05 RATIO COMPREHENSIVE METABOLIC [id number] 00:00:00* Test Item Value Reference Range Interpretation Comme nts GLUCOSE (test code = 7) 112 MG/DL BUN (test code = 2208) 16 MG/DL CREATININE (test code = 2214) 0.93 MG/DL eGFR AMER. (test cod e = 71272) 91 ML/MIN/1.73 eGFR NON- AMER. (test code = 28015) 78 ML/MIN/1.73 CALC BUN/CREAT (test code = 2235) 17 RATIO SODIUM (test code = 2231) 141 MEQ/L POTASSIUM (test code = 2228) 5.0 MEQ/L CHLORIDE (test code = 2215) 103 MEQ/L CARBON DIOXIDE (test code = 2206) 26 MEQ/L CALCIUM (test code = 2209) 9.5 MG/DL PROTEIN, TOTAL (test code = 2229) 6.8 G/DL ALBUMIN (test code = 2201) 4.4 G/DL CALC GLOBULIN (test code = 2240) 2.4 G/DL CALC A/G RATIO (test code = 2234) 1.8 RATIO BILIRUBIN, TOTAL (test code = 2207) 0.7 MG/DL ALKALINE PHOSPHATASE (test code = 2204) 75 U/L AST (test code = 2218) 19 U/L ALT (test code = 2219) 21 U/L HEMOGLOBIN [id number] 00:00:00* Test Item Value Reference Range Interpretation Comme nts HEMOGLOBIN A1c (test code = 15669) 5.6 % Sagar BenavidesHEMOGLOBIN [id number] 00:00:00* Test Item Value Reference Range Interpretation Comme nts HEMOGLOBIN A1c (test code = 22059) 5.6 % LIPID [id number] 00:00:00* Test Item Value Reference Range Interpretation Comme nts CHOLESTEROL (test code = 2210) 137 MG/DL TRIGLYCERIDES (test code = 2232) 70 MG/DL HDL CHOLESTEROL (test code = 2220) 40 MG/DL CALC LDL CHOL (test code = 2237) 82 MG/DL RISK RATIO LDL/HDL (test cod e = 2238) 2.05 RATIO Sagar BenavidesLIPID [id number] 00:00:00* Test Item Value Reference Range Interpretation Comme nts CHOLESTEROL (test code = 2210) 137 MG/DL TRIGLYCERIDES (test code = 2232) 70 MG/DL HDL CHOLESTEROL (test code = 2220) 40 MG/DL CALC LDL CHOL (test code = 2237) 82 MG/DL RISK RATIO LDL/HDL (test cod e = 2238) 2.05 RATIO COMPREHENSIVE METABOLIC [id number] 00:00:00* Test Item Value Reference Range Interpretation Comme nts GLUCOSE (test code = 2217) 112 MG/DL BUN (test code = 2208) 16 MG/DL CREATININE (test code = 2214) 0.93 MG/DL eGFR AMER. (test cod e = 56440) 91 ML/MIN/1.73 eGFR NON- AMER. (test code = 56396) 78 ML/MIN/1.73 CALC BUN/CREAT (test code = 2235) 17 RATIO SODIUM (test code = 2231) 141 MEQ/L POTASSIUM (test code = 2228) 5.0 MEQ/L CHLORIDE (test code = 2215) 103 MEQ/L CARBON DIOXIDE (test code = 2206) 26 MEQ/L CALCIUM (test code = 2209) 9.5 MG/DL PROTEIN, TOTAL (test code = 2229) 6.8 G/DL ALBUMIN (test code = 2201) 4.4 G/DL CALC GLOBULIN (test code = 2240) 2.4 G/DL CALC A/G RATIO (test code = 2234) 1.8 RATIO BILIRUBIN, TOTAL (test code = 2207) 0.7 MG/DL ALKALINE PHOSPHATASE (test code = 2204) 75 U/L AST (test code = 2218) 19 U/L ALT (test code = 2219) 21 U/L COMPREHENSIVE METABOLIC [id number] 00:00:00* Test Item Value Reference Range Interpretation Comme nts GLUCOSE (test code = 2217) 112 MG/DL BUN (test code = 2208) 16 MG/DL CREATININE (test code = 2214) 0.93 MG/DL eGFR AMER. (test cod e = 22041) 91 ML/MIN/1.73 eGFR NON- AMER. (test code = 63757) 78 ML/MIN/1.73 CALC BUN/CREAT (test code = 2235) 17 RATIO SODIUM (test code = 2231) 141 MEQ/L POTASSIUM (test code = 2228) 5.0 MEQ/L CHLORIDE (test code = 2215) 103 MEQ/L CARBON DIOXIDE (test code = 2206) 26 MEQ/L CALCIUM (test code = 2209) 9.5 MG/DL PROTEIN, TOTAL (test code = 2229) 6.8 G/DL ALBUMIN (test code = 2201) 4.4 G/DL CALC GLOBULIN (test code = 2240) 2.4 G/DL CALC A/G RATIO (test code = 2234) 1.8 RATIO BILIRUBIN, TOTAL (test code = 2207) 0.7 MG/DL ALKALINE PHOSPHATASE (test code = 2204) 75 U/L AST (test code = 2218) 19 U/L ALT (test code = 2219) 21 U/L Sagar BenavidesHEMOGLOBIN [id number] 00:00:00* Test Item Value Reference Range Interpretation Comme nts HEMOGLOBIN A1c (test code = 57306) 5.6 % Sagar BenavidesLIPID [id number] 00:00:00* Test Item Value Reference Range Interpretation Comme nts CHOLESTEROL (test code = 2210) 137 MG/DL TRIGLYCERIDES (test code = 2232) 70 MG/DL HDL CHOLESTEROL (test code = 2220) 40 MG/DL CALC LDL CHOL (test code = 2237) 82 MG/DL RISK RATIO LDL/HDL (test cod e = 2238) 2.05 RATIO Sagar BenavidesCOMPREHENSIVE METABOLIC [id number] 00:00:00* Test Item Value Reference Range Interpretation Comme nts GLUCOSE (test code = 2217) 112 MG/DL BUN (test code = 2208) 16 MG/DL CREATININE (test code = 2214) 0.93 MG/DL eGFR AMER. (test cod e = 18763) 91 ML/MIN/1.73 eGFR NON- AMER. (test code = 60851) 78 ML/MIN/1.73 CALC BUN/CREAT (test code = 2235) 17 RATIO SODIUM (test code = 2231) 141 MEQ/L POTASSIUM (test code = 2228) 5.0 MEQ/L CHLORIDE (test code = 2215) 103 MEQ/L CARBON DIOXIDE (test code = 2206) 26 MEQ/L CALCIUM (test code = 2209) 9.5 MG/DL PROTEIN, TOTAL (test code = 2229) 6.8 G/DL ALBUMIN (test code = 2201) 4.4 G/DL CALC GLOBULIN (test code = 2240) 2.4 G/DL CALC A/G RATIO (test code = 2234) 1.8 RATIO BILIRUBIN, TOTAL (test code = 2207) 0.7 MG/DL ALKALINE PHOSPHATASE (test code = 2204) 75 U/L AST (test code = 2218) 19 U/L ALT (test code = 2219) 21 U/L Sagar BenavidesHEMOGLOBIN [id number] 00:00:00* Test Item Value Reference Range Interpretation Comme nts HEMOGLOBIN A1c (test code = 12471) 5.6 % Sagar BenavidesLIPID [id number] 00:00:00* Test Item Value Reference Range Interpretation Comme nts CHOLESTEROL (test code = 2210) 137 MG/DL TRIGLYCERIDES (test code = 2232) 70 MG/DL HDL CHOLESTEROL (test code = 2220) 40 MG/DL CALC LDL CHOL (test code = 2237) 82 MG/DL RISK RATIO LDL/HDL (test cod e = 2238) 2.05 RATIO Sagar BenavidesCOMPREHENSIVE METABOLIC [id number] 00:00:00* Test Item Value Reference Range Interpretation Comme nts GLUCOSE (test code = 2217) 112 MG/DL BUN (test code = 2208) 16 MG/DL CREATININE (test code = 2214) 0.93 MG/DL eGFR AMER. (test cod e = 20307) 91 ML/MIN/1.73 eGFR NON- AMER. (test code = 14011) 78 ML/MIN/1.73 CALC BUN/CREAT (test code = 2235) 17 RATIO SODIUM (test code = 2231) 141 MEQ/L POTASSIUM (test code = 2228) 5.0 MEQ/L CHLORIDE (test code = 2215) 103 MEQ/L CARBON DIOXIDE (test code = 2206) 26 MEQ/L CALCIUM (test code = 2209) 9.5 MG/DL PROTEIN, TOTAL (test code = 2229) 6.8 G/DL ALBUMIN (test code = 2201) 4.4 G/DL CALC GLOBULIN (test code = 2240) 2.4 G/DL CALC A/G RATIO (test code = 2234) 1.8 RATIO BILIRUBIN, TOTAL (test code = 2207) 0.7 MG/DL ALKALINE PHOSPHATASE (test code = 2204) 75 U/L AST (test code = 2218) 19 U/L ALT (test code = 2219) 21 U/L Sagar BenavidesHEMOGLOBIN [id number] 00:00:00* Test Item Value Reference Range Interpretation Comme nts HEMOGLOBIN A1c (test code = 19477) 5.6 % Sagar Maldonado AustinLIPID [id number] 00:00:00* Test Item Value Reference Range Interpretation Comme nts CHOLESTEROL (test code = 2210) 137 MG/DL TRIGLYCERIDES (test code = 2232) 70 MG/DL HDL CHOLESTEROL (test code = 2220) 40 MG/DL CALC LDL CHOL (test code = 2237) 82 MG/DL RISK RATIO LDL/HDL (test cod e = 2238) 2.05 RATIO Sagar BenavidesCOMPREHENSIVE METABOLIC [id number] 00:00:00* Test Item Value Reference Range Interpretation Comme nts GLUCOSE (test code = 2217) 112 MG/DL BUN (test code = 2208) 16 MG/DL CREATININE (test code = 2214) 0.93 MG/DL eGFR AMER. (test cod e = 71228) 91 ML/MIN/1.73 eGFR NON- AMER. (test code = 75659) 78 ML/MIN/1.73 CALC BUN/CREAT (test code = 2235) 17 RATIO SODIUM (test code = 2231) 141 MEQ/L POTASSIUM (test code = 2228) 5.0 MEQ/L CHLORIDE (test code = 2215) 103 MEQ/L CARBON DIOXIDE (test code = 2206) 26 MEQ/L CALCIUM (test code = 2209) 9.5 MG/DL PROTEIN, TOTAL (test code = 2229) 6.8 G/DL ALBUMIN (test code = 2201) 4.4 G/DL CALC GLOBULIN (test code = 2240) 2.4 G/DL CALC A/G RATIO (test code = 2234) 1.8 RATIO BILIRUBIN, TOTAL (test code = 2207) 0.7 MG/DL ALKALINE PHOSPHATASE (test code = 2204) 75 U/L AST (test code = 2218) 19 U/L ALT (test code = 2219) 21 U/L Sagar BenavidesHEMOGLOBIN [id number] 00:00:00* Test Item Value Reference Range Interpretation Comme nts HEMOGLOBIN A1c (test code = 19054) 5.6 % Sagar BenavidesLIPID [id number] 00:00:00* Test Item Value Reference Range Interpretation Comme nts CHOLESTEROL (test code = 2210) 137 MG/DL TRIGLYCERIDES (test code = 2232) 70 MG/DL HDL CHOLESTEROL (test code = 2220) 40 MG/DL CALC LDL CHOL (test code = 2237) 82 MG/DL RISK RATIO LDL/HDL (test cod e = 2238) 2.05 RATIO Sagar BenavidesCOMPREHENSIVE METABOLIC [id number] 00:00:00* Test Item Value Reference Range Interpretation Comme nts GLUCOSE (test code = 2217) 112 MG/DL BUN (test code = 2208) 16 MG/DL CREATININE (test code = 2214) 0.93 MG/DL eGFR AMER. (test cod e = 80270) 91 ML/MIN/1.73 eGFR NON- AMER. (test code = 80852) 78 ML/MIN/1.73 CALC BUN/CREAT (test code = 2235) 17 RATIO SODIUM (test code = 2231) 141 MEQ/L POTASSIUM (test code = 2228) 5.0 MEQ/L CHLORIDE (test code = 2215) 103 MEQ/L CARBON DIOXIDE (test code = 2206) 26 MEQ/L CALCIUM (test code = 2209) 9.5 MG/DL PROTEIN, TOTAL (test code = 2229) 6.8 G/DL ALBUMIN (test code = 2201) 4.4 G/DL CALC GLOBULIN (test code = 2240) 2.4 G/DL CALC A/G RATIO (test code = 2234) 1.8 RATIO BILIRUBIN, TOTAL (test code = 2207) 0.7 MG/DL ALKALINE PHOSPHATASE (test code = 220) 75 U/L AST (test code = 221) 19 U/L ALT (test code = 2219) 21 U/L Sagar BenavidesHEMOGLOBIN [id number] 00:00:00* Test Item Value Reference Range Interpretation Comme nts HEMOGLOBIN A1c (test code = 41590) 5.6 % Sagar BenavidesLIPID [id number] 00:00:00* Test Item Value Reference Range Interpretation Comme nts CHOLESTEROL (test code = 2210) 137 MG/DL TRIGLYCERIDES (test code = 2232) 70 MG/DL HDL CHOLESTEROL (test code = 2220) 40 MG/DL CALC LDL CHOL (test code = 2237) 82 MG/DL RISK RATIO LDL/HDL (test cod e = 2238) 2.05 RATIO Sagar BenavidesCOMPREHENSIVE METABOLIC [id number] 00:00:00* Test Item Value Reference Range Interpretation Comme nts GLUCOSE (test code = 2217) 112 MG/DL BUN (test code = 2208) 16 MG/DL CREATININE (test code = 2214) 0.93 MG/DL eGFR AMER. (test cod e = 22290) 91 ML/MIN/1.73 eGFR NON- AMER. (test code = 66394) 78 ML/MIN/1.73 CALC BUN/CREAT (test code = 2235) 17 RATIO SODIUM (test code = 2231) 141 MEQ/L POTASSIUM (test code = 2228) 5.0 MEQ/L CHLORIDE (test code = 2215) 103 MEQ/L CARBON DIOXIDE (test code = 2206) 26 MEQ/L CALCIUM (test code = 220) 9.5 MG/DL PROTEIN, TOTAL (test code = 2229) 6.8 G/DL ALBUMIN (test code = 2201) 4.4 G/DL CALC GLOBULIN (test code = 2240) 2.4 G/DL CALC A/G RATIO (test code = 2234) 1.8 RATIO BILIRUBIN, TOTAL (test code = 2207) 0.7 MG/DL ALKALINE PHOSPHATASE (test code = 220) 75 U/L AST (test code = 2218) 19 U/L ALT (test code = 2219) 21 U/L Sagar Maldonado AustinHEMOGLOBIN [id number] 00:00:00* Test Item Value Reference Range Interpretation Comme nts HEMOGLOBIN A1c (test code = 78849) 5.5 % LIPID [id number] 00:00:00* Test Item Value Reference Range Interpretation Comme nts CHOLESTEROL (test code = 2210) 130 MG/DL TRIGLYCERIDES (test code = 2232) 90 MG/DL HDL CHOLESTEROL (test code = 2220) 37 MG/DL CALC LDL CHOL (test code = 2237) 76 MG/DL RISK RATIO LDL/HDL (test cod e = 2238) 2.05 RATIO COMPREHENSIVE METABOLIC [id number] 00:00:00* Test Item Value Reference Range Interpretation Comme nts GLUCOSE (test code = 2217) 107 MG/DL BUN (test code = 8) 16 MG/DL CREATININE (test code = 2214) 1.04 MG/DL eGFR AMER. (test cod e = 74027) 80 ML/MIN/1.73 eGFR NON- AMER. (test code = 93050) 69 ML/MIN/1.73 CALC BUN/CREAT (test code = 2235) 15 RATIO SODIUM (test code = 2231) 137 MEQ/L POTASSIUM (test code = 2228) 4.9 MEQ/L CHLORIDE (test code = 2215) 99 MEQ/L CARBON DIOXIDE (test code = 2205) 26 MEQ/L CALCIUM (test code = 2209) 9.6 MG/DL PROTEIN, TOTAL (test code = 2229) 6.8 G/DL ALBUMIN (test code = 2201) 4.5 G/DL CALC GLOBULIN (test code = 2240) 2.3 G/DL CALC A/G RATIO (test code = 2234) 2.0 RATIO BILIRUBIN, TOTAL (test code = 2207) 0.8 MG/DL ALKALINE PHOSPHATASE (test code = 2204) 57 U/L AST (test code = 2218) 21 U/L ALT (test code = 2219) 21 U/L HEMOGLOBIN [id number] 00:00:00* Test Item Value Reference Range Interpretation Comme nts HEMOGLOBIN A1c (test code = 81477) 5.5 % Sagar BenavidesPSA, [id number] 00:00:00* Test Item Value Reference Range Interpretation Comme nts PSA, TOTAL (test code = 2606) 0.05 NG/ML HEMOGLOBIN [id number] 00:00:00* Test Item Value Reference Range Interpretation Comme nts HEMOGLOBIN A1c (test code = 13537) 5.5 % LIPID [id number] 00:00:00* Test Item Value Reference Range Interpretation Comme nts CHOLESTEROL (test code = 2210) 130 MG/DL TRIGLYCERIDES (test code = 2232) 90 MG/DL HDL CHOLESTEROL (test code = 2220) 37 MG/DL CALC LDL CHOL (test code = 2237) 76 MG/DL RISK RATIO LDL/HDL (test cod e = 2238) 2.05 RATIO Sagar BenavidesLIPID [id number] 00:00:00* Test Item Value Reference Range Interpretation Comme nts CHOLESTEROL (test code = 2210) 130 MG/DL TRIGLYCERIDES (test code = 2232) 90 MG/DL HDL CHOLESTEROL (test code = 2220) 37 MG/DL CALC LDL CHOL (test code = 2237) 76 MG/DL RISK RATIO LDL/HDL (test cod e = 2238) 2.05 RATIO COMPREHENSIVE METABOLIC [id number] 00:00:00* Test Item Value Reference Range Interpretation Comme nts GLUCOSE (test code = 2217) 107 MG/DL BUN (test code = 2208) 16 MG/DL CREATININE (test code = 2214) 1.04 MG/DL eGFR AMER. (test cod e = 69020) 80 ML/MIN/1.73 eGFR NON- AMER. (test code = 60010) 69 ML/MIN/1.73 CALC BUN/CREAT (test code = 2235) 15 RATIO SODIUM (test code = 2231) 137 MEQ/L POTASSIUM (test code = 2228) 4.9 MEQ/L CHLORIDE (test code = 2215) 99 MEQ/L CARBON DIOXIDE (test code = 2206) 26 MEQ/L CALCIUM (test code = 2209) 9.6 MG/DL PROTEIN, TOTAL (test code = 2229) 6.8 G/DL ALBUMIN (test code = 2201) 4.5 G/DL CALC GLOBULIN (test code = 2240) 2.3 G/DL CALC A/G RATIO (test code = 2234) 2.0 RATIO BILIRUBIN, TOTAL (test code = 2207) 0.8 MG/DL ALKALINE PHOSPHATASE (test code = 2204) 57 U/L AST (test code = 2218) 21 U/L ALT (test code = 2219) 21 U/L Sagar Maldonado KennedyCOMPREHENSIVE METABOLIC [id number] 00:00:00* Test Item Value Reference Range Interpretation Comme nts GLUCOSE (test code = 2217) 107 MG/DL BUN (test code = 2208) 16 MG/DL CREATININE (test code = 2214) 1.04 MG/DL eGFR AMER. (test cod e = 42953) 80 ML/MIN/1.73 eGFR NON- AMER. (test code = 61197) 69 ML/MIN/1.73 CALC BUN/CREAT (test code = 2235) 15 RATIO SODIUM (test code = 2231) 137 MEQ/L POTASSIUM (test code = 2228) 4.9 MEQ/L CHLORIDE (test code = 2215) 99 MEQ/L CARBON DIOXIDE (test code = 2206) 26 MEQ/L CALCIUM (test code = 2209) 9.6 MG/DL PROTEIN, TOTAL (test code = 2229) 6.8 G/DL ALBUMIN (test code = 2201) 4.5 G/DL CALC GLOBULIN (test code = 2240) 2.3 G/DL CALC A/G RATIO (test code = 2234) 2.0 RATIO BILIRUBIN, TOTAL (test code = 2207) 0.8 MG/DL ALKALINE PHOSPHATASE (test code = 2204) 57 U/L AST (test code = 2218) 21 U/L ALT (test code = 2219) 21 U/L PSA, [id number] 00:00:00* Test Item Value Reference Range Interpretation Comme nts PSA, TOTAL (test code = 2606) 0.05 NG/ML Sagar BenavidesHEMOGLOBIN [id number] 00:00:00* Test Item Value Reference Range Interpretation Comme riley HEMOGLOBIN A1c (test code = 33518) 5.5 % Sagar BenavidesPSA, [id number] 00:00:00* Test Item Value Reference Range Interpretation Comme riley PSA, TOTAL (test code = 2606) 0.05 NG/ML LIPID [id number] 00:00:00* Test Item Value Reference Range Interpretation Comme nts CHOLESTEROL (test code = 2210) 130 MG/DL TRIGLYCERIDES (test code = 2232) 90 MG/DL HDL CHOLESTEROL (test code = 2220) 37 MG/DL CALC LDL CHOL (test code = 2237) 76 MG/DL RISK RATIO LDL/HDL (test cod e = 2238) 2.05 RATIO Sagar BenavidesCOMPREHENSIVE METABOLIC [id number] 00:00:00* Test Item Value Reference Range Interpretation Comme nts GLUCOSE (test code = 2217) 107 MG/DL BUN (test code = 2208) 16 MG/DL CREATININE (test code = 2214) 1.04 MG/DL eGFR AMER. (test cod e = 72660) 80 ML/MIN/1.73 eGFR NON- AMER. (test code = 75653) 69 ML/MIN/1.73 CALC BUN/CREAT (test code = 2235) 15 RATIO SODIUM (test code = 2231) 137 MEQ/L POTASSIUM (test code = 2228) 4.9 MEQ/L CHLORIDE (test code = 2215) 99 MEQ/L CARBON DIOXIDE (test code = 2206) 26 MEQ/L CALCIUM (test code = 2209) 9.6 MG/DL PROTEIN, TOTAL (test code = 2229) 6.8 G/DL ALBUMIN (test code = 2201) 4.5 G/DL CALC GLOBULIN (test code = 2240) 2.3 G/DL CALC A/G RATIO (test code = 2234) 2.0 RATIO BILIRUBIN, TOTAL (test code = 2207) 0.8 MG/DL ALKALINE PHOSPHATASE (test code = 2204) 57 U/L AST (test code = 2218) 21 U/L ALT (test code = 2219) 21 U/L Sagar DianaA, [id number] 00:00:00* Test Item Value Reference Range Interpretation Comme riley PSA, TOTAL (test code = 2606) 0.05 NG/ML Sagar BenavidesHEMOGLOBIN [id number] 00:00:00* Test Item Value Reference Range Interpretation Comme riley HEMOGLOBIN A1c (test code = 49854) 5.5 % Sagar BenavidesLIPID [id number] 00:00:00* Test Item Value Reference Range Interpretation Comme nts CHOLESTEROL (test code = 2210) 130 MG/DL TRIGLYCERIDES (test code = 2232) 90 MG/DL HDL CHOLESTEROL (test code = 2220) 37 MG/DL CALC LDL CHOL (test code = 2237) 76 MG/DL RISK RATIO LDL/HDL (test cod e = 2238) 2.05 RATIO Sagar BenavidesCOMPREHENSIVE METABOLIC [id number] 00:00:00* Test Item Value Reference Range Interpretation Comme nts GLUCOSE (test code = 2217) 107 MG/DL BUN (test code = 2208) 16 MG/DL CREATININE (test code = 2214) 1.04 MG/DL eGFR AMER. (test cod e = 51216) 80 ML/MIN/1.73 eGFR NON- AMER. (test code = 76028) 69 ML/MIN/1.73 CALC BUN/CREAT (test code = 2235) 15 RATIO SODIUM (test code = 2231) 137 MEQ/L POTASSIUM (test code = 2228) 4.9 MEQ/L CHLORIDE (test code = 2215) 99 MEQ/L CARBON DIOXIDE (test code = 2206) 26 MEQ/L CALCIUM (test code = 2209) 9.6 MG/DL PROTEIN, TOTAL (test code = 2229) 6.8 G/DL ALBUMIN (test code = 2201) 4.5 G/DL CALC GLOBULIN (test code = 2240) 2.3 G/DL CALC A/G RATIO (test code = 2234) 2.0 RATIO BILIRUBIN, TOTAL (test code = 2207) 0.8 MG/DL ALKALINE PHOSPHATASE (test code = 2204) 57 U/L AST (test code = 2218) 21 U/L ALT (test code = 2219) 21 U/L Sagar DianaA, [id number] 00:00:00* Test Item Value Reference Range Interpretation Comme nts PSA, TOTAL (test code = 2606) 0.05 NG/ML Sagar BenavidesHEMOGLOBIN [id number] 00:00:00* Test Item Value Reference Range Interpretation Comme nts HEMOGLOBIN A1c (test code = 87435) 5.5 % Sagar BenavidesLIPID [id number] 00:00:00* Test Item Value Reference Range Interpretation Comme nts CHOLESTEROL (test code = 2210) 130 MG/DL TRIGLYCERIDES (test code = 2232) 90 MG/DL HDL CHOLESTEROL (test code = 2220) 37 MG/DL CALC LDL CHOL (test code = 2237) 76 MG/DL RISK RATIO LDL/HDL (test cod e = 2238) 2.05 RATIO Sagar BenavidesCOMPREHENSIVE METABOLIC [id number] 00:00:00* Test Item Value Reference Range Interpretation Comme nts GLUCOSE (test code = 2217) 107 MG/DL BUN (test code = 2208) 16 MG/DL CREATININE (test code = 2214) 1.04 MG/DL eGFR AMER. (test cod e = 08335) 80 ML/MIN/1.73 eGFR NON- AMER. (test code = 33458) 69 ML/MIN/1.73 CALC BUN/CREAT (test code = 2235) 15 RATIO SODIUM (test code = 2231) 137 MEQ/L POTASSIUM (test code = 2228) 4.9 MEQ/L CHLORIDE (test code = 2215) 99 MEQ/L CARBON DIOXIDE (test code = 2206) 26 MEQ/L CALCIUM (test code = 2209) 9.6 MG/DL PROTEIN, TOTAL (test code = 2229) 6.8 G/DL ALBUMIN (test code = 2201) 4.5 G/DL CALC GLOBULIN (test code = 2240) 2.3 G/DL CALC A/G RATIO (test code = 2234) 2.0 RATIO BILIRUBIN, TOTAL (test code = 2207) 0.8 MG/DL ALKALINE PHOSPHATASE (test code = 2204) 57 U/L AST (test code = 2218) 21 U/L ALT (test code = 2219) 21 U/L Sagar BenavidesPSA, [id number] 00:00:00* Test Item Value Reference Range Interpretation Comme nts PSA, TOTAL (test code = 2606) 0.05 NG/ML Sagar BenavidesHEMOGLOBIN [id number] 00:00:00* Test Item Value Reference Range Interpretation Comme nts HEMOGLOBIN A1c (test code = 54003) 5.5 % Sagar BenavidesLIPID [id number] 00:00:00* Test Item Value Reference Range Interpretation Comme nts CHOLESTEROL (test code = 2210) 130 MG/DL TRIGLYCERIDES (test code = 2232) 90 MG/DL HDL CHOLESTEROL (test code = 2220) 37 MG/DL CALC LDL CHOL (test code = 2237) 76 MG/DL RISK RATIO LDL/HDL (test cod e = 2238) 2.05 RATIO Sagar BenavidesCOMPREHENSIVE METABOLIC [id number] 00:00:00* Test Item Value Reference Range Interpretation Comme nts GLUCOSE (test code = 2217) 107 MG/DL BUN (test code = 2208) 16 MG/DL CREATININE (test code = 2214) 1.04 MG/DL eGFR AMER. (test cod e = 02898) 80 ML/MIN/1.73 eGFR NON- AMER. (test code = 13846) 69 ML/MIN/1.73 CALC BUN/CREAT (test code = 2235) 15 RATIO SODIUM (test code = 2231) 137 MEQ/L POTASSIUM (test code = 2228) 4.9 MEQ/L CHLORIDE (test code = 2215) 99 MEQ/L CARBON DIOXIDE (test code = 2206) 26 MEQ/L CALCIUM (test code = 2209) 9.6 MG/DL PROTEIN, TOTAL (test code = 2229) 6.8 G/DL ALBUMIN (test code = 2201) 4.5 G/DL CALC GLOBULIN (test code = 2240) 2.3 G/DL CALC A/G RATIO (test code = 2234) 2.0 RATIO BILIRUBIN, TOTAL (test code = 2207) 0.8 MG/DL ALKALINE PHOSPHATASE (test code = 2204) 57 U/L AST (test code = 2218) 21 U/L ALT (test code = 2219) 21 U/L Sagar BenavidesPSA, [id number] 00:00:00* Test Item Value Reference Range Interpretation Comme nts PSA, TOTAL (test code = 2606) 0.05 NG/ML Sagar BenavidesHEMOGLOBIN [id number] 00:00:00* Test Item Value Reference Range Interpretation Comme nts HEMOGLOBIN A1c (test code = 21651) 5.5 % Sagar BenavidesLIPID [id number] 00:00:00* Test Item Value Reference Range Interpretation Comme nts CHOLESTEROL (test code = 2210) 130 MG/DL TRIGLYCERIDES (test code = 2232) 90 MG/DL HDL CHOLESTEROL (test code = 2220) 37 MG/DL CALC LDL CHOL (test code = 2237) 76 MG/DL RISK RATIO LDL/HDL (test cod e = 2238) 2.05 RATIO Sagar BenavidesCOMPREHENSIVE METABOLIC [id number] 00:00:00* Test Item Value Reference Range Interpretation Comme nts GLUCOSE (test code = 2217) 107 MG/DL BUN (test code = 2208) 16 MG/DL CREATININE (test code = 2214) 1.04 MG/DL eGFR AMER. (test cod e = 69545) 80 ML/MIN/1.73 eGFR NON- AMER. (test code = 07682) 69 ML/MIN/1.73 CALC BUN/CREAT (test code = 2235) 15 RATIO SODIUM (test code = 2231) 137 MEQ/L POTASSIUM (test code = 2228) 4.9 MEQ/L CHLORIDE (test code = 2215) 99 MEQ/L CARBON DIOXIDE (test code = 2206) 26 MEQ/L CALCIUM (test code = 2209) 9.6 MG/DL PROTEIN, TOTAL (test code = 2229) 6.8 G/DL ALBUMIN (test code = 2201) 4.5 G/DL CALC GLOBULIN (test code = 2240) 2.3 G/DL CALC A/G RATIO (test code = 2234) 2.0 RATIO BILIRUBIN, TOTAL (test code = 2207) 0.8 MG/DL ALKALINE PHOSPHATASE (test code = 2204) 57 U/L AST (test code = 2218) 21 U/L ALT (test code = 2219) 21 U/L Sagar BenavidesPSA, [id number] 00:00:00* Test Item Value Reference Range Interpretation Comme nts PSA, TOTAL (test code = 2606) 0.05 NG/ML Sagar BenavidesLIPID PANEL (REFL)2020-01-18 00:00:00* Test Item Value Reference Range Interpretation Comme nts CHOLESTEROL, TOTAL (test cod e = 3-3) 132 mg/dL HDL CHOLESTEROL (test code = 5-9) 41 mg/dL TRIGLYCERIDES (test code = 2571-8) 86 mg/dL LDL-CHOLESTEROL (test code = 86005-3) 74 mg/dL(calc) CHOL/HDLC RATIO (test code = 9830-1) 3.2 (calc) NON HDL CHOLESTEROL (test co de = 60206-7) 91 mg/dL(calc) HEPATIC FUNCTION [id number] 00:00:00* Test Item Value Reference Range Interpretation Comme nts PROTEIN, TOTAL (test code = 2885-2) 6.6 g/dL ALBUMIN (test code = 1751-7) 4.1 g/dL GLOBULIN (test code = 78947-0) 2.5 g/dL(calc) ALBUMIN/GLOBULIN RATIO (test code = 1759-0) 1.6 (calc) BILIRUBIN, TOTAL (test code = 1974-) 0.7 mg/dL BILIRUBIN, DIRECT (test code = 1967-7) 0.2 mg/dL BILIRUBIN, INDIRECT (test code = 1970-) 0.5 mg/dL(calc) ALKALINE PHOSPHATASE (test code = 6768-6) 52 U/L AST (test code = 1920-8) 17 U/L ALT (test code = 1742-6) 14 U/L HEMOGLOBIN [id number] 00:00:00* Test Item Value Reference Range Interpretation Comme nts HEMOGLOBIN A1c (test code = 4548-4) 5.5 %oftotalHgb LIPID PANEL (REFL)2020-01-18 00:00:00* Test Item Value Reference Range Interpretation Comme nts CHOLESTEROL, TOTAL (test cod e = 2093-3) 132 mg/dL HDL CHOLESTEROL (test code = 2085-9) 41 mg/dL TRIGLYCERIDES (test code = 2571-8) 86 mg/dL LDL-CHOLESTEROL (test code = 00719-7) 74 mg/dL(calc) CHOL/HDLC RATIO (test code = 9830-1) 3.2 (calc) NON HDL CHOLESTEROL (test co de = 38727-5) 91 mg/dL(calc) Sagar BenavidesHEPATIC FUNCTION [id number] 00:00:00* Test Item Value Reference Range Interpretation Comme nts PROTEIN, TOTAL (test code = 2885-2) 6.6 g/dL ALBUMIN (test code = 1751-7) 4.1 g/dL GLOBULIN (test code = 13804-1) 2.5 g/dL(calc) ALBUMIN/GLOBULIN RATIO (test code = 1759-0) 1.6 (calc) BILIRUBIN, TOTAL (test code = 1974-) 0.7 mg/dL BILIRUBIN, DIRECT (test code = 1967-) 0.2 mg/dL BILIRUBIN, INDIRECT (test code = 1970-) 0.5 mg/dL(calc) ALKALINE PHOSPHATASE (test code = 6768-6) 52 U/L AST (test code = 192-8) 17 U/L ALT (test code = 1742-6) 14 U/L Sagar BenavidesLIPID PANEL ([facility])2020-01-18 00:00:00* Test Item Value Reference Range Interpretation Comme nts CHOLESTEROL, TOTAL (test cod e = 2093-3) 132 mg/dL HDL CHOLESTEROL (test code = 2085-9) 41 mg/dL TRIGLYCERIDES (test code = 2571-8) 86 mg/dL LDL-CHOLESTEROL (test code = 55168-1) 74 mg/dL(calc) CHOL/HDLC RATIO (test code = 9830-1) 3.2 (calc) NON HDL CHOLESTEROL (test co de = 88165-0) 91 mg/dL(calc) HEPATIC FUNCTION [id number] 00:00:00* Test Item Value Reference Range Interpretation Comme nts PROTEIN, TOTAL (test code = 2885-2) 6.6 g/dL ALBUMIN (test code = 1751-7) 4.1 g/dL GLOBULIN (test code = 74332-3) 2.5 g/dL(calc) ALBUMIN/GLOBULIN RATIO (test code = 1759-0) 1.6 (calc) BILIRUBIN, TOTAL (test code = 1974-) 0.7 mg/dL BILIRUBIN, DIRECT (test code = 1967-) 0.2 mg/dL BILIRUBIN, INDIRECT (test code = 1970-) 0.5 mg/dL(calc) ALKALINE PHOSPHATASE (test code = 6768-6) 52 U/L AST (test code = 1919-8) 17 U/L ALT (test code = 1742-6) 14 U/L HEMOGLOBIN [id number] 00:00:00* Test Item Value Reference Range Interpretation Comme nts HEMOGLOBIN A1c (test code = 4548-4) 5.5 %oftotalHgb Sagar BenavidesHEMOGLOBIN [id number] 00:00:00* Test Item Value Reference Range Interpretation Comme nts HEMOGLOBIN A1c (test code = 4548-4) 5.5 %oftotalb LIPID PANEL (REFL)2020-01-18 00:00:00* Test Item Value Reference Range Interpretation Comme nts CHOLESTEROL, TOTAL (test cod e = 2093-3) 132 mg/dL HDL CHOLESTEROL (test code = 2085-9) 41 mg/dL TRIGLYCERIDES (test code = 2571-8) 86 mg/dL LDL-CHOLESTEROL (test code = 79951-2) 74 mg/dL(calc) CHOL/HDLC RATIO (test code = 9830-1) 3.2 (calc) NON HDL CHOLESTEROL (test co de = 63349-2) 91 mg/dL(calc) Sagar BenavidesHEPATIC FUNCTION [id number] 00:00:00* Test Item Value Reference Range Interpretation Comme nts PROTEIN, TOTAL (test code = 2885-2) 6.6 g/dL ALBUMIN (test code = 1751-7) 4.1 g/dL GLOBULIN (test code = 06367-1) 2.5 g/dL(calc) ALBUMIN/GLOBULIN RATIO (test code = 1759-0) 1.6 (calc) BILIRUBIN, TOTAL (test code = 1974-2) 0.7 mg/dL BILIRUBIN, DIRECT (test code = 1967-7) 0.2 mg/dL BILIRUBIN, INDIRECT (test code = 1970-) 0.5 mg/dL(calc) ALKALINE PHOSPHATASE (test code = 6768-6) 52 U/L AST (test code = 1920-8) 17 U/L ALT (test code = 1742-6) 14 U/L Sagar BenavidesHEMOGLOBIN [id number] 00:00:00* Test Item Value Reference Range Interpretation Comme nts HEMOGLOBIN A1c (test code = 4548-4) 5.5 %oftotalb Sagar Maldonado AustinLIPID PANEL (REFL)2020-01-18 00:00:00* Test Item Value Reference Range Interpretation Comme nts CHOLESTEROL, TOTAL (test cod e = 2092-3) 132 mg/dL HDL CHOLESTEROL (test code = 5-9) 41 mg/dL TRIGLYCERIDES (test code = 2571-8) 86 mg/dL LDL-CHOLESTEROL (test code = 43679-2) 74 mg/dL(calc) CHOL/HDLC RATIO (test code = 9830-1) 3.2 (calc) NON HDL CHOLESTEROL (test co de = 61574-1) 91 mg/dL(calc) Sagar BenavidesHEPATIC FUNCTION [id number] 00:00:00* Test Item Value Reference Range Interpretation Comme nts PROTEIN, TOTAL (test code = 2885-2) 6.6 g/dL ALBUMIN (test code = 1751-7) 4.1 g/dL GLOBULIN (test code = 33091-8) 2.5 g/dL(calc) ALBUMIN/GLOBULIN RATIO (test code = 1759-0) 1.6 (calc) BILIRUBIN, TOTAL (test code = 1974-) 0.7 mg/dL BILIRUBIN, DIRECT (test code = 1967-7) 0.2 mg/dL BILIRUBIN, INDIRECT (test code = 1970-) 0.5 mg/dL(calc) ALKALINE PHOSPHATASE (test code = 6768-6) 52 U/L AST (test code = 1920-8) 17 U/L ALT (test code = 1742-6) 14 U/L Sagar BenavidesHEMOGLOBIN [id number] 00:00:00* Test Item Value Reference Range Interpretation Comme nts HEMOGLOBIN A1c (test code = 4548-4) 5.5 %oftotalHgb Sagar BenavidesLIPID PANEL (REFL)2020-01-18 00:00:00* Test Item Value Reference Range Interpretation Comme nts CHOLESTEROL, TOTAL (test cod e = 2092-3) 132 mg/dL HDL CHOLESTEROL (test code = 5-9) 41 mg/dL TRIGLYCERIDES (test code = 2571-8) 86 mg/dL LDL-CHOLESTEROL (test code = 42886-8) 74 mg/dL(calc) CHOL/HDLC RATIO (test code = 9830-1) 3.2 (calc) NON HDL CHOLESTEROL (test co de = 76574-6) 91 mg/dL(calc) Sagar BenavidesHEPATIC FUNCTION [id number] 00:00:00* Test Item Value Reference Range Interpretation Comme nts PROTEIN, TOTAL (test code = 2885-2) 6.6 g/dL ALBUMIN (test code = 1751-7) 4.1 g/dL GLOBULIN (test code = 24634-4) 2.5 g/dL(calc) ALBUMIN/GLOBULIN RATIO (test code = 1759-0) 1.6 (calc) BILIRUBIN, TOTAL (test code = 1974-) 0.7 mg/dL BILIRUBIN, DIRECT (test code = 1967-) 0.2 mg/dL BILIRUBIN, INDIRECT (test code = 1970-) 0.5 mg/dL(calc) ALKALINE PHOSPHATASE (test code = 6768-6) 52 U/L AST (test code = 1920-8) 17 U/L ALT (test code = 1742-6) 14 U/L Sagar BenavidesHEMOGLOBIN [id number] 00:00:00* Test Item Value Reference Range Interpretation Comme nts HEMOGLOBIN A1c (test code = 4548-4) 5.5 %oftotalHgb Sagar BenavidesLIPID PANEL (REFL)2020-01-18 00:00:00* Test Item Value Reference Range Interpretation Comme nts CHOLESTEROL, TOTAL (test cod e = 2093-3) 132 mg/dL HDL CHOLESTEROL (test code = 2085-9) 41 mg/dL TRIGLYCERIDES (test code = 2571-8) 86 mg/dL LDL-CHOLESTEROL (test code = 03492-4) 74 mg/dL(calc) CHOL/HDLC RATIO (test code = 9830-1) 3.2 (calc) NON HDL CHOLESTEROL (test co de = 71997-2) 91 mg/dL(calc) Sagar BenavidesHEPATIC FUNCTION [id number] 00:00:00* Test Item Value Reference Range Interpretation Comme nts PROTEIN, TOTAL (test code = 2885-2) 6.6 g/dL ALBUMIN (test code = 1751-7) 4.1 g/dL GLOBULIN (test code = 36198-0) 2.5 g/dL(calc) ALBUMIN/GLOBULIN RATIO (test code = 1759-0) 1.6 (calc) BILIRUBIN, TOTAL (test code = 1974-) 0.7 mg/dL BILIRUBIN, DIRECT (test code = 1967-) 0.2 mg/dL BILIRUBIN, INDIRECT (test code = 1970-) 0.5 mg/dL(calc) ALKALINE PHOSPHATASE (test code = 6768-6) 52 U/L AST (test code = 1919-8) 17 U/L ALT (test code = 1742-6) 14 U/L Sagar BenavidesHEMOGLOBIN [id number] 00:00:00* Test Item Value Reference Range Interpretation Comme nts HEMOGLOBIN A1c (test code = 4548-4) 5.5 %oftotalHgb Sagar Maldonado AustinLIPID PANEL (REFL)2020-01-18 00:00:00* Test Item Value Reference Range Interpretation Comme nts CHOLESTEROL, TOTAL (test cod e = 2093-3) 132 mg/dL HDL CHOLESTEROL (test code = 2085-9) 41 mg/dL TRIGLYCERIDES (test code = 2571-8) 86 mg/dL LDL-CHOLESTEROL (test code = 42882-9) 74 mg/dL(calc) CHOL/HDLC RATIO (test code = 9830-1) 3.2 (calc) NON HDL CHOLESTEROL (test co de = 88741-6) 91 mg/dL(calc) Sagar BenavidesHEPATIC FUNCTION [id number] 00:00:00* Test Item Value Reference Range Interpretation Comme nts PROTEIN, TOTAL (test code = 2885-2) 6.6 g/dL ALBUMIN (test code = 1751-7) 4.1 g/dL GLOBULIN (test code = 89892-2) 2.5 g/dL(calc) ALBUMIN/GLOBULIN RATIO (test code = 1759-0) 1.6 (calc) BILIRUBIN, TOTAL (test code = 1974-) 0.7 mg/dL BILIRUBIN, DIRECT (test code = 1967-) 0.2 mg/dL BILIRUBIN, INDIRECT (test code = 1970-) 0.5 mg/dL(calc) ALKALINE PHOSPHATASE (test code = 6768-6) 52 U/L AST (test code = 1919-8) 17 U/L ALT (test code = 1742-6) 14 U/L Sagar BenavidesHEMOGLOBIN [id number] 00:00:00* Test Item Value Reference Range Interpretation Comme nts HEMOGLOBIN A1c (test code = 4548-4) 5.5 %oftotalHgb Sagar Benavides
--- NOTE | 2024-09-03 12:35 | ER ---
Nurse's Notes [facility] Name: Danny Kaufman Age: 84 yrs Sex: Male : 1940 Arrival Date: 09/03/2024 Time: 12:03 Bed IW4 Private MD: Diagnosis: Encounter for examination of ears and hearing without abnormal findings Presentation: 09/03 12:28 Chief complaint: Patient states: Piece of hearing aid stuck in left ear onset today. Pt cm10 reports throbbing to left ear. Coronavirus screen: Client denies travel out of the [place] in the last 14 days. Ebola Screen: Patient denies travel to an Ebola-affected area in the 21 days before illness onset. Initial Sepsis Screen: Does the patient meet any 2 criteria? No. Patient's initial sepsis screen is negative. Does the patient have a suspected source of infection? No. Patient's initial sepsis screen is negative. Risk Assessment: Do you want to hurt yourself or someone else? Patient reports no desire to harm self or others. Onset of symptoms was September 03, 2024. 12:28 Method Of Arrival: Ambulatory cm10 12:28 Acuity: JIHAN 4 cm10 Triage Assessment: 12:30 General: Appears in no apparent distress. comfortable, Behavior is calm, cooperative. cm10 Pain: Complains of pain in left ear Pain does not radiate. Pain currently is 3 out of 10 on a pain scale. Quality of pain is described as throbbing. EENT: Reports Piece of hearing aid in left ear.. Neuro: No deficits noted. Level of Consciousness is awake, alert, obeys commands, Oriented to person, place, time, situation, Appropriate for age. Respiratory: No deficits noted. Airway is patent Respiratory effort is even, unlabored, Respiratory pattern is regular, symmetrical. 12:33 EENT: Ear canal clear on left ear. cm10 Historical: - Allergies: 12:29 No Known Allergies; cm10 - PMHx: 12:29 aortic anerysm; COPD; Depression; High Cholesterol; psoriasis; Rheumatoid Arthritis; cm10 - Immunization history:: Adult Immunizations up to date. - Infectious Disease History:: Denies. - Social history:: Smoking status: Patient denies any tobacco usage or history of. Screenin:32 [facility] ED Fall Risk Assessment (Adult) History of falling in the last 3 months, cm10 including since admission No falls in past 3 months (0 pts) Confusion or Disorientation No (0 pts) Intoxicated or Sedated No (0 pts) Impaired Gait No (0 pts) Mobility Assist Device Used No (0 pt) Altered Elimination No (0 pt) Score/Fall Risk Level 0 - 2 = Low Risk Oriented to surroundings, Maintained a safe environment, Hourly rounding (assess needs \T\ fall precautionary measures) done. Abuse screen: Denies threats or abuse. Denies injuries from another. Nutritional screening: No deficits noted. Tuberculosis screening: No symptoms or risk factors identified. Vital Signs: 12:28 BP 151 / 84; Pulse 80; Resp 15; Temp 98.1(TE); Pulse Ox 97% on R/A; Weight 120.2 kg; cm10 Height 5 ft. 9 in. ; Pain 3/10; 12:28 Body Mass Index 39.13 (120.20 kg, 175.26 cm) cm10 12:28 Pain Scale: Adult cm10 ED Course: 12:08 Patient arrived in ED. ra3 12:11 Josh Wilson DO is Attending Physician. ms3 12:29 Triage completed. cm10 12:29 Arm band placed on right wrist. Patient placed in waiting room. cm10 12:33 Patient has correct armband on for positive identification. Provided Education on: ER cm10 process and procedures.. 12:33 No provider procedures requiring assistance completed. Patient did not have IV access cm10 during this emergency room visit. Administered Medications: No medications were administered Medication: 12:32 VIS not applicable for this client. cm10 Outcome: 12:33 Discharged to home ambulatory, cm10 12:33 Condition: good 12:33 Discharge instructions given to patient, Instructed on discharge instructions, follow up and referral plans. Demonstrated understanding of instructions, follow-up care, 12:34 Discharge ordered by MD. ms3 12:38 Patient left the ED. cm10 Signatures: Josh Wilson DO DO ms3 Trini West RN RN cm10 Larissa Alicea ra3
--- NOTE | 2024-09-03 12:35 | EDPHYS ---
Physician Documentation [facility] Name: Danny Kaufman Age: 84 yrs Sex: Male : 1940 Arrival Date: 09/03/2024 Time: 12:03 Bed IW4 Private MD: ED Physician Josh Wilson HPI: 09/03 12:38 This 84 yrs old Male presents to ER via Ambulatory with complaints of Foreign Body In ms3 Ear. 12:38 Danny Kaufman, an 84-year-old male, presents to the emergency department for evaluation ms3 of a suspected foreign body in his ear. He reports no symptoms of pain or discomfort, and there have been no changes in his hearing. . Historical: - Allergies: 12:29 No Known Allergies; cm10 - PMHx: 12:29 aortic anerysm; COPD; Depression; High Cholesterol; psoriasis; Rheumatoid Arthritis; cm10 - Immunization history:: Adult Immunizations up to date. - Infectious Disease History:: Denies. - Social history:: Smoking status: Patient denies any tobacco usage or history of. ROS: 12:38 Constitutional: Negative for fever, and chills. ms3 12:38 Cardiovascular: Negative for chest pain, and palpitations. Respiratory: Negative for shortness of breath, cough, wheezing, and pleuritic chest pain, Abdomen/GI: Negative for abdominal pain, nausea, vomiting, diarrhea, and constipation, Skin: Negative for injury, rash, and discoloration, 12:38 ENT: Positive for Possible piece of hearing aid in left ear, Exam: 12:38 Constitutional: This is a well developed, well nourished patient who is awake, alert, ms3 and in no acute distress. 12:38 Neck: Trachea midline, no cervical lymphadenopathy. Supple, full range of motion without nuchal rigidity, or vertebral point tenderness. No Meningismus. Cardiovascular: Regular rate and rhythm with a normal S1 and S2. No gallops, murmurs, or rubs. Normal PMI, no JVD. No pulse deficits. Respiratory: Lungs have equal breath sounds bilaterally, clear to auscultation and percussion. No rales, rhonchi or wheezes noted. No increased work of breathing, no retractions or nasal flaring. Abdomen/GI: Soft, non-tender, with normal bowel sounds. No distension or tympany. No guarding or rebound. No evidence of tenderness throughout. 12:38 ENT: Ear canal(s): no acute changes, foreign body, is not appreciated, Vital Signs: 12:28 BP 151 / 84; Pulse 80; Resp 15; Temp 98.1(TE); Pulse Ox 97% on R/A; Weight 120.2 kg; cm10 Height 5 ft. 9 in. ; Pain 3/10; 12:28 Body Mass Index 39.13 (120.20 kg, 175.26 cm) cm10 12:28 Pain Scale: Adult cm10 MDM: 12:33 Medical Screening Exam initiated ms3 12:38 Data reviewed: vital signs, nurses notes, and as a result, I will discharge patient. ms3 Counseling: I had a detailed discussion with the patient and/or guardian regarding the historical points, exam findings, and any diagnostic results supporting the discharge/admit diagnosis, the need for outpatient follow up, to return to the emergency department if symptoms worsen or persist or if there are any questions or concerns that arise at home. Special discussion: I discussed with the patient/guardian in detail that at this point there is no indication for admission to the hospital. It is understood, however, that if the symptoms persist or worsen the patient needs to return immediately for re-evaluation. ED course: Discussed physical exam findings with patient. Patient to follow-up with primary care physician as needed. All questions were answered. Return precautions discussed include worsening symptoms, or any other concerns.. Administered Medications: No medications were administered Disposition Summary: 09/03/24 12:34 Discharge Ordered Notes: Location: Home ms3 Condition: Stable ms3 Diagnosis - Encounter for examination of ears and hearing without abnormal findings ms3 Followup: ms3 - With: Private Physician - When: As needed - Reason: Discharge Instructions: - Discharge Summary Sheet ms3 - Medical Screening Exam ms3 Forms: - Medication Reconciliation Form ms3 - Antibiotic Education ms3 - Prescription Opioid Use ms3 - Patient Portal Instructions ms3 - Leadership Thank You Letter ms3 Signatures: Josh Wilson DO DO ms3 Trini West, RN RN cm10
[2024-09-04 16:47] VITALS: BP 151/84; TEMP 98.1; O2SAT 97
== END 2024-09-03 12:38 | disposition home or self-care (01) ==
LOC: ER 12:03
DX: Z71.1 Person with feared health complaint in whom no diagnosis is made (principal)
CPT/HCPCS: 99282